=== PATIENT | male | born 1945 | race Caucasian/White ===

== ENCOUNTER 2022-01-24 17:25 | Inpatient (IN) ==
--- NOTE | 2022-01-24 18:18 | DR.URIAD ---
HPI Time Seen Time Seen by Provider: 01/24/22 18:18 PCP Primary Care Physician: None - out of state HPI Comment HPI Comment: PATIENT IS 76YR OLD MALE IN ER WITH FEVER, COUGH AND BLEEDING FROM HEMORRHOID TIMES 2 DAYS. TREATED FOR UTI AND FINISH MED 2 DAYS AGO AND PATIENT SPIKE TEMP YESTERDAY. RECTAL PAIN 7/10 REPORTED. Complaint Chief Complaint Doctors Comments: FEVER, COUGH, BLEEDING FROM HEMORRHOID. Chief Complaint:: Per son, pt has been on abx for UTI, completed them 2 days ago, started running fever 101.5 last night, also has a junky cough, O2 sats got low at home 86-93%, hx of COPD. Pt c/o pain to the chest/abdomen after coughing, pain to the rectum d/t hemorrhoids and also c/o large amount of bleeding from hemorroids. COVID-19 Coronavirus risk:travel/contact w/high risk person: No Has patient experienced Coronavirus symptoms: Yes Coronavirus symptoms experienced: Fever and Coughing Reviewed Nurses Notes Reviewed: Yes Source History Provided: Patient and Family Member Mode of Arrival Mode of Arrival: Wheelchair Timing Onset of Chief Complaint: 01/22/22 Context Recent Treated Infections: None Quality Quality of Cough: Nonproductive Rhinorrhea: None Shortness of Breath: none Associated Signs and Symptoms Other Signs and Symptoms: Cough, Fever, Nasal Symptoms and URI Other History Other History: HTN. COPD PMH PMH Past Medical History: Yes Past Medical History: Anemia, Angina, Anxiety, Asthma, COPD, Coronary Artery Disease, CVA, Dyslipidemia, GERD, Hypertension, Hypothyroidism, Kidney Stones, [place], Renal Disease and Sleep Apnea Past Medical History Comment: hemorrhoids Past Surgical History: Yes Surgical History: CABG/Valve Surgery Family History History of Family Medical Conditions: Yes Family Medical History: Diabetes Mellitus, Cancer, [place], Coronary Artery Disease, Heart Failure and Hypertension Social History Alcohol Use: None Do you use any recreational Drugs:: No Lives With: Family Lives Where: Home Travel Risk Coronavirus risk:travel/contact w/high risk person: No Has patient experienced Coronavirus symptoms: Yes Coronavirus symptoms experienced: Fever and Coughing Infectious screening In the last 2 months have you had wt loss of >10#?: NO Have you had fever, night sweats or hemotysis?: No Have you traveled outside the country in the last 6 months?: No Isolation: Respiratory ROS Review of Systems Constitutional: See HPI, Fever, Weakness and Fatigue Eyes: No Symptoms Reported and See HPI ENTM: No Symptoms Reported, See HPI, Nose Discharge and Nose Congestion Respiratoy: See HPI and Moist Cough; negative Short of Breath and Wheezing Cardiovascular: No Symptoms Reported and See HPI; negative Chest Pain Gastrointestinal/Abdominal: See HPI and Abdominal Pain; negative Diarrhea and Vomiting Genitourinary: See HPI and Bleeding (HEMORRHOID BLLEDING.); negative Dysuria Neurological: No Symptoms Reported, See HPI, Headache and Weakness Musculoskeletal: No Symptoms Reported and See HPI; negative Muscle Pain Integumentary: No Symptoms Reported and See HPI; negative Rash and Juandice Hematologic/Lymphatic: negative Easy Bruising Endocrine: No Symptoms Reported and See HPI; negative Increased Thirst and Increased Urine Psychiatric: No Symptoms Reported and See HPI All Other Systems: Reviewed and Negative PE Vital Signs Vitals: Temperature 99.9 F Pulse Rate [Right Brachial] 91 Pulse Rate 102 Respiratory Rate 18 Blood Pressure [Right Arm] 120/60 Blood Pressure 109/61 O2 Sat by Pulse Oximetry 95 General Limitations: No Limitations General Appearance: Alert and In No Apparent Distress Head Head Exam: Normal Inspection Eyes Eye exam: Normal Appearance; negative Scleral Icterus and Conjunctival Injection ENT ENT Exam: Normal Exam; negative Normal Oropharynx External Ear Exam: Normal External Inspection; negative Mastoid Tenderness TM/Canal Exam: Bilateral: Normal Nose Exam: Normal Nose Exam Mouth Exam: Normal Inspection; negative Lip Swelling and Tongue Swelling Throat Exam: Normal Inspection Neck Neck Exam: Normal Inspection and Trachea Midline; negative Tenderness Chest Chest Inspection: Normal Inspection and Symmetric Chest Wall Rise; negative Tenderness Respiratory Respiratory Exam: Normal Lung Sounds Bilat; negative Accessory Muscle Use, Chest Wall Tenderness and Respiratory Distress Respiratory Exam: Bilateral: Rhonchi Cardiovascular Cardiovascular Exam: Regular Rate, Normal Rhythm and Normal Heart Sounds; negative Systolic Murmur and Diastolic Murmur Abdominal Exam Abdominal Exam: Normal Inspection, Normal Bowel Sounds, Soft and Other (RECTAL HEMORRHOID/BLEEDING.); negative Tenderness Extremeties Extremities Exam: Normal Inspection and Normal Capillary Refill Back Back Exam: Normal Inspection; negative (R) CVA Tenderness and (L) CVA Tenderness Neurologic Neurological Exam: Alert and Oriented X3; negative Motor Sensory Deficit Psychiatric Psychiatric Exam: Normal Affect and Normal Mood Skin Skin Exam: Warm, Dry, Intact and Normal Color MDM Additional Information Additional Information Obtained From: Old Records and Family Differential Diagnosis Differential Diagnosis: Pneumonia (UTI, BRONCHITIS, HEMORRHOID/BLEEDING, WEAKNESS, FEVER.), Sinsusitis and URI COURSE Treatment Treatment: SEE ORDERS DONE WHILE PATIENT WAS IN ER. PATIENT WAS ALSO GIVEN ROCEPHIN 1GM IVPB, NS 1L AT 100CC/HR AND NRORCO 7.5MG PO WHILE IN ER. LABS, EKG AND XRAY REPORT WAS DISCUSSED WITH PATIENT AND FAMILY. Consultation Consultation Comments: DISCUSSED PATIENT WITH DR. RIGGINS. HE WILL ADMIT PATIENT. Education/Counseling Education/Counseling: Patient and Family Educated On: Diagnosis ROR Labs Reviewed Laboratory Results Reviewed?: Yes Result Diagrams: 01/31/22 05:35 01/31/22 05:35 Laboratory: 01/24/22 19:35 Blood Blood Culture - Final 01/24/22 18:51 Blood Blood Culture - Final 01/24/22 21:58 Urine,Catheterized Urine Culture - Final Enterobacter Cloacae WBC 12.9 X10^3/uL (3.6-10.0) H 01/24/22 18:51 RBC 3.09 X10^6/uL (4.7-6.0) L 01/24/22 18:51 Hgb 8.2 g/dL (13.5-18.0) L 01/24/22 18:51 Hct 25.5 % (42.0-54.0) L 01/24/22 18:51 MCV 82.8 fL (80.0-100.0) 01/24/22 18:51 MCH 26.5 pg (27.0-34.0) L 01/24/22 18:51 MCHC 32.0 g/dL (33.0-35.0) L 01/24/22 18:51 RDW 18.2 % (11.6-16.5) H 01/24/22 18:51 Plt Count 225 X10^3/uL (150.0-450.0) 01/24/22 18:51 MPV 6.5 fL (7.4-11.0) L 01/24/22 18:51 Neut % (Auto) 78.3 % (42.0-75.0) H 01/24/22 18:51 Lymph % (Auto) 12.8 % (21.0-51.0) L 01/24/22 18:51 [place] % (Auto) 7.9 % (0.0-13.0) 01/24/22 18:51 Eos % (Auto) 0.7 % (0.9-2.9) L 01/24/22 18:51 Baso % (Auto) 0.3 % (0.2-1.0) 01/24/22 18:51 Neut # (Auto) 10.1 x10^3/uL (2.2-4.8) H 01/24/22 18:51 Lymph # (Auto) 1.7 X10^3/uL (1.3-2.9) 01/24/22 18:51 [place] # (Auto) 1.0 x10^3/uL (0.3-0.8) H 01/24/22 18:51 Eos # (Auto) 0.1 x10^3/uL (0.0-0.2) 01/24/22 18:51 Baso # (Auto) 0.0 X10^3/uL (0.0-0.1) 01/24/22 18:51 Absolute Nucleated RBC 0.0 /100WBC 01/24/22 18:51 Sodium 134 mmol/L (136-145) L 01/24/22 18:51 Corrected Sodium TNP 01/24/22 18:51 Potassium 3.5 mmol/L (3.5-5.1) 01/24/22 18:51 Chloride 99 mmol/L (98-107) 01/24/22 18:51 Carbon Dioxide 27.2 mmol/L (21-32) 01/24/22 18:51 BUN 16 mg/dL (7-18) 01/24/22 18:51 Creatinine 1.43 mg/dL (0.70-1.30) H 01/24/22 18:51 Est GFR (MDRD) Af Amer > 60 (>60) 01/24/22 18:51 Est GFR (MDRD) Non-Af 51 (>60) L 01/24/22 18:51 Glucose 105 mg/dL (65-99) H 01/24/22 18:51 Lactic Acid 1.8 mmol/L (0.4-2.0) 01/24/22 18:51 Calcium 7.9 mg/dL (8.5-10.1) L 01/24/22 18:51 Corrected Calcium 9.0 mg/dL (8.5-10.1) 01/24/22 18:51 Total Bilirubin 0.50 mg/dL (0.2-1.0) 01/24/22 18:51 AST 21 Units/L (15-37) 01/24/22 18:51 ALT 22 Units/L (12-78) 01/24/22 18:51 Alkaline Phosphatase 65 Units/L (46-116) 01/24/22 18:51 Creatine Kinase 125 Units/L (39-308) 01/24/22 18:51 CK-MB (CK-2) < 1.0 ng/mL (0-4.0) 01/24/22 18:51 CK/CKMB % Calc 0.8 % (<4) 01/24/22 18:51 Troponin I High Sens 17.9 ng/L (4.0-60.0) 01/24/22 18:51 Total Protein 6.6 g/dL (6.4-8.2) 01/24/22 18:51 Albumin 2.6 g/dL (3.4-5.0) L 01/24/22 18:51 Globulin 4.0 g/dL (2.5-4.5) 01/24/22 18:51 Albumin/Globulin Ratio 0.7 Ratio (1.1-2.1) L 01/24/22 18:51 Specimen Type Catherized urine 01/24/22 21:58 Urine Color Yellow (YELLOW) 01/24/22 21:58 Urine Appearance Cloudy (CLEAR) 01/24/22 21:58 Urine pH 5.0 (5.0 - 8.0) 01/24/22 21:58 Ur Specific [place] 1.020 (1.000-1.030) 01/24/22 21:58 Urine Protein 2+ (NEGATIVE) 01/24/22 21:58 Urine Glucose (UA) 2+ (NEGATIVE) 01/24/22 21:58 Urine Ketones 1+ (NEGATIVE) 01/24/22 21:58 Urine Blood 3+ (NEGATIVE) 01/24/22 21:58 Urine Nitrite Positive (NEGATIVE) 01/24/22 21:58 Urine Bilirubin Negative (NEGATIVE) 01/24/22 21:58 Urine Urobilinogen Normal (NORMAL) 01/24/22 21:58 Ur Leukocyte Esterase 3+ (NEGATIVE) 01/24/22 21:58 Urine RBC Tntc /HPF (0-3) A 01/24/22 21:58 Urine WBC Tntc /HPF (0-5) A 01/24/22 21:58 Ur Squamous Epith Cells Rare /HPF (NEGATIVE) 01/24/22 21:58 Urine Bacteria 1+ /HPF (NEGATIVE) 01/24/22 21:58 Urine Yeast Numerous /HPF (NEGATIVE) 01/24/22 21:58 Ur Culture Indicated? Yes/culture set up 01/24/22 21:58 SARS CoV-2 RNA Rapid LANCE Negative (NEGATIVE) 01/25/22 00:11 Miscellaneous Test See scanned report 01/24/22 21:58 XRAY XRAY Interpreted by: Radiologist (report noted.) and Self EKG Rate: 82 [place]: Normal Rhythm: Afib Block: None Hypertrophy: None ST: Nonsp Opioid Opioid Risk Tool Age (Francis box if 16-45): No History of Preadolescent Sexual Abuse: No Total: 0 Total Score Risk Category: Low Risk Copyright: Dewayne SMITH predicting aberrant behaviors Diagnosis Discharge Problem: Hemorrhoids with complication Pneumonia Qualifiers: Pneumonia type: due to unspecified organism Laterality: unspecified laterality Lung location: unspecified part of lung Qualified Code(s): J18.9 - Pneumonia, unspecified organism UTI (urinary tract infection) Qualifiers: Urinary tract infection type: acute cystitis Hematuria presence: with hematuria Qualified Code(s): N30.01 - Acute cystitis with hematuria Instructions Instructions: Anemia Preventing Iron Deficiency Anemia, Adult Urinary Tract Infection, Adult, [id number] Hemorrhoids, [id number] Iron Deficiency Anemia, Adult, [id number] Forms: Excuse From Work or School Precautions for COVID19 [facility] Social Distancing
[2022-01-24 19:12] LABS: BASOPHILS % (AUTO) 0.3 % (0.2-1.0); EOSINOPHILS # (AUTO) 0.1 x10^3/uL (0.0-0.2); EOSINOPHILS % (AUTO) 0.7 % (0.9-2.9); HEMATOCRIT 25.5 % (42.0-54.0); HEMOGLOBIN 8.2 g/dL (13.5-18.0); LYMPHOCYTES # (AUTO) 1.7 X10^3/uL (1.3-2.9); LYMPHOCYTES % (AUTO) 12.8 % (21.0-51.0); MEAN CORPUSCULAR HEMOGLOBIN 26.5 pg (27.0-34.0); MEAN CORPUSCULAR VOLUME 82.8 fL (80.0-100.0); MEAN PLATELET VOLUME 6.5 fL (7.4-11.0); MONOCYTES % (AUTO) 7.9 % (0.0-13.0); NEUTROPHILS # (AUTO) 10.1 x10^3/uL (2.2-4.8); NEUTROPHILS % (AUTO) 78.3 % (42.0-75.0); RED BLOOD COUNT 3.09 X10^6/uL (4.7-6.0); RED CELL DISTRIBUTION WIDTH 18.2 % (11.6-16.5); WHITE BLOOD COUNT 12.9 X10^3/uL (3.6-10.0)
[2022-01-24 19:31] LABS: LACTIC ACID 1.8 mmol/L (0.4-2.0)
[2022-01-24 19:32] LABS: ALANINE AMINOTRANSFERASE 22 Units/L (12-78); ALBUMIN 2.6 g/dL (3.4-5.0); ALKALINE PHOSPHATASE 65 Units/L (46-116); ASPARTATE AMINO TRANSFERASE 21 Units/L (15-37); BLOOD UREA NITROGEN 16 mg/dL (7-18); CALCIUM 7.9 mg/dL (8.5-10.1); CARBON DIOXIDE 27.2 mmol/L (21-32); CHLORIDE 99 mmol/L (98-107); CKMB % 0.8 % (<4); CREATINE KINASE 125 Units/L (39-308); CREATINE KINASE MB < 1.0 ng/mL (0-4.0); CREATININE 1.43 mg/dL (0.70-1.30); SODIUM 134 mmol/L (136-145); TOTAL PROTEIN 6.6 g/dL (6.4-8.2); eGFR NON BLACK RACES 51 (>60)
--- NOTE | 2022-01-24 20:33 | RAD ---
HISTORYpt has been on abx for UTI, completed them 2 days ago, started running fever 101.5 last night, also has a junky cough, O2 sats got low at home 86-93% Relevant Clinical InformationSTUDYCHEST, 1 VIEWCOMPARISONFINDINGSThe trachea is midline. The cardiac silhouette is mildly enlarged. Pacemaker in dual leads are present. Aorta is tortuous. Pulmonary blood flow is congested. There is some patchy opacity in the right base of uncertain etiology. There is some chronic coarsening of interstitial markings. There is no pleural effusion. The bony thorax is unremarkable.IMPRESSION1. Nonspecific right base opacity which could be infection or scarring. 2. Left base opacity more typical for atelectasis.Electronically signed by: Iftikhar Junior (Jan 24, 2022 20:33:03)
[2022-01-24] MEDS ORDERED: ROCEPHIN VIAL 1 GRAM 1 G in NS 100 ML IV 100 ML IV ONE (21:11)
[2022-01-24] MEDS ORDERED: ROCEPHIN VIAL 1 GRAM IM ONE (21:41)
[2022-01-24] MEDS ORDERED: ROCEPHIN VIAL 1 GRAM ONE (21:43)
[2022-01-24] MEDS ORDERED: XYLOCAINE 1 % (PLAIN) ONE (21:44)
[2022-01-24 22:07] LABS: BILIRUBIN,URINE NEGATIVE (NEGATIVE); BLOOD/HEMOGLOBIN,URINE 3+ (NEGATIVE); GLUCOSE, URINE 2+ (NEGATIVE); KETONES,URINE 1+ (NEGATIVE); LEUKOCYTE ESTERASE ,URINE 3+ (NEGATIVE); NITRITES,URINE POSITIVE (NEGATIVE); PROTEIN,URINE 2+ (NEGATIVE); UROBILINOGEN,URINE NORMAL (NORMAL)
[2022-01-24 22:17] LABS: APPEARANCE,URINE CLOUDY (CLEAR); BACTERIA,URINE 1+ /HPF (NEGATIVE); COLOR,URINE YELLOW (YELLOW); RBC,URINE TNTC /HPF (0-3); SQUAMOUS EPITHELIAL CELL,UR RARE /HPF (NEGATIVE)
[2022-01-24 22:18] LABS: YEAST,URINE NUMEROUS /HPF (NEGATIVE)
[2022-01-24] MEDS ORDERED: NORCO 7.5/325 MG TAB ONE (23:48)
[2022-01-24] MEDS: NORCO 7.5/325 MG TAB PO PRN (23:50)
[2022-01-25] MEDS ORDERED: NS 100 ML IV 100 ML ONE (01:07)
[2022-01-25] MEDS ORDERED: NS 1,000 ML IV 1,000 ML ONE (01:07)
[2022-01-25] MEDS ORDERED: ZOSYN VIAL 3.375 GRAMS IV ONE (01:07)
[2022-01-25] MEDS: NS 1,000 ML IV 1,000 ML IV SCH ×2 (01:20→13:14)
[2022-01-25] MEDS: ZOSYN VIAL 3.375 GRAMS 3.375 G in NS 100 ML IV 100 ML IV SCH ×4 (01:20→21:54)
[2022-01-25] MEDS ORDERED: PROVENTIL NEB TX 0.083% 2.5MG/ 3ML ONE (01:51)
[2022-01-25] MEDS: PROVENTIL NEB TX 0.083% 2.5MG/ 3ML NEB SCH ×5 (02:00→21:03)
[2022-01-25 03:14] VITALS: BMI 33.3
[2022-01-25 06:17] LABS: BASOPHILS % (AUTO) 0.2 % (0.2-1.0); HEMATOCRIT 24.3 % (42.0-54.0); HEMOGLOBIN 7.8 g/dL (13.5-18.0); LYMPHOCYTES # (AUTO) 1.4 X10^3/uL (1.3-2.9); LYMPHOCYTES % (AUTO) 12.6 % (21.0-51.0); MEAN CORPUSCULAR HEMOGLOBIN 26.6 pg (27.0-34.0); MEAN CORPUSCULAR HGB CONC 32.3 g/dL (33.0-35.0); MEAN CORPUSCULAR VOLUME 82.4 fL (80.0-100.0); MEAN PLATELET VOLUME 6.9 fL (7.4-11.0); MONOCYTES # (AUTO) 1.2 x10^3/uL (0.3-0.8); MONOCYTES % (AUTO) 10.7 % (0.0-13.0); NEUTROPHILS # (AUTO) 8.7 x10^3/uL (2.2-4.8); NEUTROPHILS % (AUTO) 76.5 % (42.0-75.0); RED BLOOD COUNT 2.95 X10^6/uL (4.7-6.0); RED CELL DISTRIBUTION WIDTH 18.1 % (11.6-16.5); WHITE BLOOD COUNT 11.4 X10^3/uL (3.6-10.0)
[2022-01-25 06:35] LABS: ALANINE AMINOTRANSFERASE 18 Units/L (12-78); ALBUMIN 2.3 g/dL (3.4-5.0); ALKALINE PHOSPHATASE 60 Units/L (46-116); ASPARTATE AMINO TRANSFERASE 19 Units/L (15-37); BLOOD UREA NITROGEN 16 mg/dL (7-18); CALCIUM 7.5 mg/dL (8.5-10.1); CARBON DIOXIDE 27.5 mmol/L (21-32); CHLORIDE 100 mmol/L (98-107); CKMB % 0.6 % (<4); COR CA(FOR HYPOALB) 8.9 mg/dL (8.5-10.1); COR NA(FOR HYPERGLY) 135 mmol/L (136-145); CREATINE KINASE 172 Units/L (39-308); CREATINE KINASE MB < 1.0 ng/mL (0-4.0); CREATININE 1.35 mg/dL (0.70-1.30); MAGNESIUM 1.8 mg/dL (1.7-2.9); SODIUM 134 mmol/L (136-145); eGFR NON BLACK RACES 54 (>60)
[2022-01-25] MEDS ORDERED: POTASSIUM CHLORIDE LIQ 20 MEQ UDC PO PRN (10:47)
[2022-01-25] MEDS ORDERED: K-RIDER 10 MEQ/NS 100 ML 10 MEQ/100 ML BAG IV PRN (10:47)
[2022-01-25] MEDS ORDERED: POTASSIUM CHL 40 MEQ/NS 0.45% 500 ML IV PRN (10:47)
[2022-01-25] MEDS ORDERED: KLOR-CON PO PRN (10:47)
[2022-01-25] MEDS ORDERED: MICRO K EXTEN CAP 10 MEQ PO PRN (10:47)
[2022-01-25] MEDS ORDERED: POTASSIUM CHL 60 MEQ/NS 0.45% 500 ML IV PRN (10:47)
--- NOTE | 2022-01-25 12:30 | DR.H&P ---
H&P - History & Physical for Day of: H&P Date: 01/24/22 - Chief Complaint Chief Complaint: FEVER, COUGH, SOB, RECTAL BLEEDING - History of Present Illness History of Present Illness: IS A 76 YEAR OLD WHITE MALE. HE LIVES OUT OF TOWN, BUT IS HERE VISITING WITH FAMILY. HE PRESENTED WITH COMPLAINTS OF FEVER, COUGH, AND RECTAL BLEEDING. PER SON, PATIENT WAS RECENTLY TREATED FOR A UTI WITH MACROBID. HE FINISHED TAKING ANTIBIOTICS ON 01/22. HE BEGAN RUNNING FEVER ONE DAY PRIOR TO ARRIVAL. SON REPORTS THAT PATIENT ALSO HAS A PRODUCTIVE COUGH AND SHORTNESS OF BREATH. HIS OXYGEN SATURATIONS WERE APPARENTLY 86-93% AT HOME ON ROOM AIR. PATIENT DOES HAVE A HISOTRY OF COPD. PATIENT REPORTS PAIN TO THE CHEST/ABDOMEN AREA AFTER COUGHING. HE ALSO COMPLAINS OF PAIN TO THE RECTUM AND BLEEDING D/T HEMORRHOIDS. SPUTUM IS THICK AND YELLOW IN COLOR. PMH INCLUDES: ANEMIA, ANXIETY, ASTHMA, COPD, CAD, CVA, DYSLIPIDEMIA, GERD, HTN, HYPOTHYROIDISM CT, RENAL DISEASE, SLEEP APNEA, HEMORRHOIDS, AND CABG. AUSCULTATION OF LUNG BROWN DID REVEAL RHONCHI AND EXPIRATORY WHEEZING. ON ARRIVAL, VITALS WERE: 99.9-102-22-94%-109/61. LABS WERE OBTAINED. WBC 12.9, RBC 3.09, HGB 8.2, HCT 25.5, INR 2.79, HGB 50.7, SODIUM 134, POTASSIUM 3.5, CHLORIDE 99, BUN 16, CREATININE 1.43, GLUCOSE 105, LACTIC ACID 1.8, CALCIUM 7.9, AST 21, ALT 22, ALK PHOS 65, CREATINE KINASE 125, TOTAL PROTEIN 6.6, ALBUMIN 2.6. URINALYSIS WAS OBTAINED AND REVEALED: WBC TNTC, RBC TNTC, LEUKOCYTES 3+, BACTERIA 1+, YEAST NUMEROUS, BLOOD 3+. COVID-19 NEGATIVE. BLOOD, SPUTUM, AND URINE CULTURES WERE SET UP. CHEST XRAY WAS OBTAINED AND REVEALED: 1. Nonspecific right base opacity which could be infection or scarring. 2. Left base opacity more typical for atelectasis. IN THE ER, HE WAS GIVEN ROCEPHIN 1G IV X 1 DOSE. A PATEL CATHETER WAS INSERTED TO BEDSIDE DRAINAGE. HE WAS ADMITTED TO THE HOSPTIAL FOR INPATIENT TREATMENT OF PNEUMONIA, UTI, ANEMIA, HEMORRHOIDS, RECTAL BLEEDING. HE WAS STARTED ON NORMAL SALINE AT 50 ML/HR, ZOSYN 3.375G IV TID, LEVAQUIN 500MG IV DAILY, DIFLUCAN 200MG IV DAILY, PEPCID 20MG IV Q12H, PROTONIX 40MG IV BID, GI COCKTAIL 15ML PO QID, PROVENTIL NEBS QID, PULMICORT NEBS BID, NORCO 7.5/325MG PO Q6H PRN, AND THE POTASSIUM AND MAGNESIUM PROTOCOLS. WE WILL HAVE PHYSICAL THERAPY EVALUATE AND WORK WITH PATIENT TODAY. OTHERWISE, WE PLAN TO FOLLOW-UP WITH AM LABS AND CONTINUE TO MONITOR. TIME SPENT ON CLINICAL ASSESSMENT, REVIEWING LABS AND IMAGING, DECISION MAKING, AND DOCUMENTATION GREATER THAN 75 MINUTES. - Past Medical History Past Medical History: Angina, CT, Coronary Artery Disease, Hypertension, Dyslipidemia, Renal Disease, Anxiety, Hypothyroidism, Anemia, CVA, COPD, Asthma, GERD, Kidney Stones, Sleep Apnea - Past Surgical History Surgical History: CABG/Valve Surgery - Family History Family Medical History: Diabetes Mellitus, Cancer, CT, Coronary Artery Disease, Heart Failure, Hypertension - Social History Does patient currently use any type of tobacco product: No Have you used tobacco products in the last 12 months: No Type of Tobacco Use: Cigarettes How many years tobacco product used: 20 Does any household member use tobacco: No Alcohol Use: None Drug Use: Prescription Drugs - Medications Home Medications: No Known Drug Allergies Allergy (Verified 01/24/22 17:26) CONTINUE taking the following medications hydrocodone-acetaminophen 1 tab PO Q6H 01/25/22 [History] - Review of Systems Constitutional: Fever, Weakness Eyes: No Symptoms Reported ENT: No Symptoms Reported Respiratory: See HPI, Cough, Shortness of Breath Cardiovascular: No Symptoms Reported Gastrointestinal: No Symptoms Reported Genitourinary: See HPI, Dysuria Musculoskeletal: No Symptoms Reported Skin: No Symptoms Reported Neurological: Weakness - Physical Exam Vital Signs: Temperature 99.3 F Pulse Rate [Right Brachial] 92 Pulse Rate 89 Respiratory Rate 20 Blood Pressure [Right Arm] 133/62 Blood Pressure 109/61 O2 Sat by Pulse Oximetry 99 Oriented: Normal Eyes: Normal Ear: Normal Nose: Normal Throat: Normal Respiratory: Rhonchi Throughout, Wheezes Throughout Cardiovascular: Normal : Normal Auscultation: Bowel Sounds: Normal Palpation: Normal Tenderness: Suprapubic Skin: Normal Musculoskeletal: Normal Psychiatric: Normal Mood Description: Calm Affect: Normal Speech Pattern: Clear - Assessment/Plan (1) Pneumonia Qualifiers: Pneumonia type: due to unspecified organism Laterality: unspecified laterality Lung location: unspecified part of lung Qualified Code(s): J18.9 - Pneumonia, unspecified organism Status: Acute Plan: ADMIT, NORMAL SALINE AT 50 ML/HR, ZOSYN 3.375G IV TID, LEVAQUIN 500MG IV DAILY, PEPCID 20MG IV Q12H, PROTONIX 40MG IV BID, GI COCKTAIL 15ML PO QID, PROVENTIL NEBS QID, PULMICORT NEBS BID, NORCO 7.5/325MG PO Q6H PRN, AND THE POTASSIUM AND MAGNESIUM PROTOCOLS. (2) UTI (urinary tract infection) Qualifiers: Urinary tract infection type: acute cystitis Hematuria presence: with hematuria Qualified Code(s): N30.01 - Acute cystitis with hematuria Status: Acute (3) Anemia Qualifiers: Anemia type: iron deficiency Iron deficiency anemia type: unspecified iron deficiency Qualified Code(s): D50.9 - Iron deficiency anemia, unspecified Status: Acute (4) Bleeding external hemorrhoids Status: Acute - Allergies Allergies/Adverse Reactions: Allergies Allergy/AdvReac Type Severity Reaction Status Date / Time No Known Drug Allergies Allergy Verified 01/24/22 17:26
[2022-01-25] MEDS ORDERED: MAGNESIUM SULFATE 1 GRAM/100 mL PREMIX 1 G/100 ML BAG IV ONE (12:33)
[2022-01-25] MEDS ORDERED: NS 250 ML IV 250 ML IV ONE (12:33)
[2022-01-25] MEDS ORDERED: DIFLUCAN 200 MG IV PREMIX* 200 MG/100 ML BAG IV ONE (12:33)
[2022-01-25] MEDS: DIFLUCAN 200 MG IV PREMIX* 200 MG/100 ML BAG IV SCH (13:12)
[2022-01-25] MEDS: PEPCID 20 MG VIAL 20 MG in NS 50 ML IV 50 ML IV SCH ×2 (13:12→21:53)
[2022-01-25] MEDS: LEVAQUIN PREMIX IV 500 MG 500 MG/100 ML BAG IV SCH (13:13)
[2022-01-25] MEDS: LEVSIN/MAALOX/LIDOC VISC PO SCH ×4 (13:13→21:53)
[2022-01-25] MEDS: PROTONIX INJ 40 MG VIAL IVP SCH ×2 (13:13→21:54)
[2022-01-25] MEDS: K-DUR TAB 20 MEQ PO PRN (13:13)
[2022-01-25] MEDS: PULMICORT NEB TX 0.5 MG NEB SCH ×2 (13:52→21:03)
[2022-01-25] MEDS: MAGNESIUM SULFATE 1 GRAM/100 mL PREMIX 1 G/100 ML BAG IV PRN ×2 (15:30→16:30)
[2022-01-25] MEDS: NORCO 7.5/325 MG TAB PO PRN (18:59)
[2022-01-25] MEDS ORDERED: VALIUM PO PRN (23:38)
[2022-01-26] MEDS: NS 1,000 ML IV 1,000 ML IV SCH ×2 (01:09→05:13)
[2022-01-26] MEDS ORDERED: ROBITUSSIN DM PO PRN (02:34)
[2022-01-26] MEDS: ZOSYN VIAL 3.375 GRAMS 3.375 G in NS 100 ML IV 100 ML IV SCH ×3 (05:13→21:00)
--- NOTE | 2022-01-26 05:46 | RAD ---
PROCEDURE: Chest X-ray 1 View .HISTORY: Dyspnea.TECHNIQUE: AP view .COMPARISON: 01/24/2022.TECHNICAL QUALITY: Satisfactory .FINDINGS:Normal size heart with previous sternotomy and pacemaker on the right.Normal central vascularity.No pulmonary consolidation, masses, or pleural fluid.IMPRESSION:1. No active cardiopulmonary disease.Electronically signed by: Harman Disla (Jan 26, 2022 05:47:07)
[2022-01-26 06:35] LABS: BASOPHILS % (AUTO) 0.3 % (0.2-1.0); EOSINOPHILS # (AUTO) 0.1 x10^3/uL (0.0-0.2); EOSINOPHILS % (AUTO) 1.5 % (0.9-2.9); HEMATOCRIT 23.6 % (42.0-54.0); HEMOGLOBIN 7.5 g/dL (13.5-18.0); LYMPHOCYTES % (AUTO) 24.6 % (21.0-51.0); MEAN CORPUSCULAR HEMOGLOBIN 26.3 pg (27.0-34.0); MEAN CORPUSCULAR HGB CONC 31.8 g/dL (33.0-35.0); MEAN CORPUSCULAR VOLUME 82.5 fL (80.0-100.0); MEAN PLATELET VOLUME 6.7 fL (7.4-11.0); MONOCYTES # (AUTO) 0.8 x10^3/uL (0.3-0.8); MONOCYTES % (AUTO) 9.8 % (0.0-13.0); NEUTROPHILS % (AUTO) 63.8 % (42.0-75.0); RED BLOOD COUNT 2.86 X10^6/uL (4.7-6.0); RED CELL DISTRIBUTION WIDTH 18.2 % (11.6-16.5); WHITE BLOOD COUNT 7.9 X10^3/uL (3.6-10.0)
[2022-01-26 07:05] LABS: ALANINE AMINOTRANSFERASE 25 Units/L (12-78); ALBUMIN 2.2 g/dL (3.4-5.0); ALKALINE PHOSPHATASE 65 Units/L (46-116); ASPARTATE AMINO TRANSFERASE 34 Units/L (15-37); BLOOD UREA NITROGEN 12 mg/dL (7-18); CALCIUM 8.2 mg/dL (8.5-10.1); CARBON DIOXIDE 28.9 mmol/L (21-32); CHLORIDE 103 mmol/L (98-107); COR CA(FOR HYPOALB) 9.6 mg/dL (8.5-10.1); COR NA(FOR HYPERGLY) 138 mmol/L (136-145); CREATININE 1.25 mg/dL (0.70-1.30); SODIUM 138 mmol/L (136-145); eGFR NON BLACK RACES 59 (>60)
[2022-01-26] MEDS: DIFLUCAN 200 MG IV PREMIX* 200 MG/100 ML BAG IV SCH (08:24)
[2022-01-26] MEDS: LEVSIN/MAALOX/LIDOC VISC PO SCH ×4 (08:24→20:59)
[2022-01-26] MEDS: PEPCID 20 MG VIAL 20 MG in NS 50 ML IV 50 ML IV SCH ×2 (08:24→21:00)
[2022-01-26] MEDS: NORCO 7.5/325 MG TAB PO PRN (08:24)
[2022-01-26] MEDS: LEVAQUIN PREMIX IV 500 MG 500 MG/100 ML BAG IV SCH (08:24)
[2022-01-26] MEDS: PROTONIX INJ 40 MG VIAL IVP SCH ×2 (08:24→20:58)
[2022-01-26] MEDS: MUCOMYST (RESPIRATORY USE ONLY) NEB SCH ×2 (08:41→20:25)
[2022-01-26] MEDS: PULMICORT NEB TX 0.5 MG NEB SCH ×2 (08:41→20:25)
[2022-01-26] MEDS: PROVENTIL NEB TX 0.083% 2.5MG/ 3ML NEB SCH (08:41)
[2022-01-26] MEDS: DUONEB 0.5 MG/3 MG (3 mL) NEB SCH ×4 (10:04→20:25)
[2022-01-26] MEDS ORDERED: NovoLIN R (or HumuLIN R) SUBCUT PRN (10:10)
[2022-01-26] MEDS ORDERED: ASTELIN NASAL SPRAY ENOSTRIL ONE (10:40)
[2022-01-26] MEDS ORDERED: DRUG FILTER EXTENSION SET ONE (10:44)
[2022-01-26] MEDS ORDERED: CLINIMIX 4.25%-5% 1,000 ML with MVI INJ (ADULT) 10 ML IV SCH ×2 (11:00)
[2022-01-26] MEDS: PATIENT'S HOME MEDICATION (Alfuzosin 10 mg Tablet Extended Release 24 Hr) PO SCH (11:07)
[2022-01-26] MEDS: ASTELIN NASAL SPRAY ENOSTRIL SCH ×2 (11:08→20:58)
[2022-01-26] MEDS: BUMEX TAB 1 MG PO SCH ×2 (11:08→20:58)
[2022-01-26] MEDS: DAPAGLIFLOZIN 10 MG PO SCH (11:08)
[2022-01-26] MEDS: K-DUR TAB 20 MEQ PO SCH (11:09)
[2022-01-26] MEDS: FERROUS GLUCONATE PO SCH (11:09)
[2022-01-26] MEDS: COZAAR PO SCH (11:09)
[2022-01-26] MEDS: SYNTHROID 50 mcg TAB PO SCH (11:10)
[2022-01-26] MEDS: VITAMIN B-12 PO SCH (11:10)
[2022-01-26] MEDS: PROSCAR PO SCH (11:10)
[2022-01-26] MEDS: VITAMIN D3 125 mcg (5,000 UNITS) PO SCH (11:11)
[2022-01-26] MEDS: TESSALON PERLES PO SCH ×3 (11:11→21:00)
[2022-01-26] MEDS: ALBUMIN HUMAN 25%- 100 ML 100 ML IV SCH (11:11)
--- NOTE | 2022-01-26 13:36 | PCM.PROG ---
Progress Note - Progress Note for Day of Date of Exam: 01/26/22 - Subjective Subjective: WAS ADMITTED FOR TREATMENT OF PNEUMONIA, UTI, ANEMIA, AND BLEEDING HEMORRHOIDS. TODAY, HE IS ALERT AND ORIENTED, SITTING UP IN BED ON MORNING ROUNDS. HE CONTINUES WITH COMPLAINTS OF PRODUCTIVE COUGH, SHORTNESS OF BREATH, AND GENERALIZED WEAKNESS. HE ALSO CONTINUES WITH RECTAL PAIN FROM HEMORRHOIDS AT TIMES. ON EXAMINATION, HEART IS REGULAR IN RATE AND RHYTHM. BILATERAL LUNGS NOTED WITH RHONCHI AND WHEEZING THROUGHOUT. COUGH IS PRODUCTIVE OF THICK, YELLOW SPUTUM. ABDOMEN IS ROUND, SOFT, AND NOTED WITH SUPRAPUBIC TENDERNESS. NORMAL BOWEL SOUNDS NOTED IN ALL QUADRANTS. INDWELLING PATEL NOTED TO BEDSIDE DRAINAGE. TRACE LOWER EXTREMITY EDEMA NOTED. HIS VITALS THIS MORNING ARE: 97.8-82-20-97%-146/70. LABS WERE OBTAINED. ABNORMAL LAB VALUES INCLUDE THE FOLLOWING: RBC 2.86, HGB 7.5, HCT 23.6, INR 2.31, SODIUM 138, POTASSIUM 3.3, BUN 12, CREATININE 1.12, GLUCOSE 119, CALCIUM 8.2, TOTAL PROTEIN 6.0, ALBUMIN 2.2. BLOOD AND SPUTUM CULTURES ARE PENDING. URINE CULTURE IS POSITIVE FOR YEAST AND ENTEROBACTER CLOACAE. IT IS SENSITIVE TO THE ANTIBIOTICS THAT HE IS CURRENTLY ON. HE IS CURRENTLY ON NORMAL SALINE AT 50 ML/HR, ZOSYN 3.375G IV TID, LEVAQUIN 500MG IV DAILY, DIFLUCAN 200MG IV DAILY, PEPCID 20MG IV Q12H, PROTONIX 40MG IV BID, GI COCKTAIL 15ML PO QID, PROVENTIL NEBS QID, PULMICORT NEBS BID, NORCO 7.5/325MG PO Q6H PRN, AND THE POTASSIUM AND MAGNESIUM PROTOCOLS. WE WILL DI SCONTINUE THE PROVENTIL NEBS AND ADD DUONEBS QID. WE WILL ALSO ADD ALBUMIN 25% IV DAILY, TPN AT 40 ML/HR, TESSALON PERLES 200MG PO TID. PHYSICAL THERAPY WILL WORK WITH HIM TODAY. OTHERWISE, WE PLAN TO FOLLOW-UP WITH AM LABS AND CONTINUE TO MONITOR. TIME SPENT ON CLINICAL ASSESSMENT, REVIEWING LABS AND IMAGING, DECISION MAKING, AND DOCUMENTATION GREATER THAN 45 MINUTES. - Past Medical Family Social History Past Med/Fam/Surg Hx: No changes since H&P Allergies: Allergies No Known Drug Allergies Allergy (Verified 01/24/22 17:26) - Review of Systems ROS: No change since H&P - Vital Signs and I&O's Vital Signs: Temperature 97.9 F Pulse Rate [Right Brachial] 78 Pulse Rate 147 Respiratory Rate 20 Blood Pressure [Right Arm] 120/59 Blood Pressure 109/61 O2 Sat by Pulse Oximetry 99 Intake and Output: Intake & Output 01/24/22 01/25/22 01/26/22 01/27/22 11:59 11:59 11:59 11:59 Intake Total 450 / 450 2661 / 2661 Output Total 925 / 925 Balance 450 / 450 1736 / 1736 - Physical Exam Oriented: Normal Eyes: Normal Ear: Normal Nose: Normal Throat: Normal Respiratory: Generalized, Wheezes, Rhonchi Cardiovascular: Normal : Normal Auscultation: Bowel Sounds: Normal Palpation: Normal Tenderness: Suprapubic Skin: Normal Musculoskeletal: Normal Psychiatric: Normal Mood Description: Calm Affect: Normal Speech Pattern: Clear, Appropriate - Laboratory and Diagnostics Result Diagrams: 01/26/22 05:37 01/26/22 05:37 Labs: 01/25/22 02:00 Sputum - Expectorated Sputum Sputum Culture - Preliminary 01/25/22 02:00 Sputum - Expectorated Sputum - Final 01/24/22 19:35 Blood Blood Culture - Preliminary 01/24/22 18:51 Blood Blood Culture - Preliminary 01/24/22 21:58 Urine,Catheterized Urine Culture - Final Enterobacter Cloacae Laboratory WBC 7.9 X10^3/uL (3.6-10.0) 01/26/22 05:37 RBC 2.86 X10^6/uL (4.7-6.0) L 01/26/22 05:37 Hgb 7.5 g/dL (13.5-18.0) L 01/26/22 05:37 Hct 23.6 % (42.0-54.0) L 01/26/22 05:37 MCV 82.5 fL (80.0-100.0) 01/26/22 05:37 MCH 26.3 pg (27.0-34.0) L 01/26/22 05:37 MCHC 31.8 g/dL (33.0-35.0) L 01/26/22 05:37 RDW 18.2 % (11.6-16.5) H 01/26/22 05:37 Plt Count 192 X10^3/uL (150.0-450.0) 01/26/22 05:37 MPV 6.7 fL (7.4-11.0) L 01/26/22 05:37 Neut % (Auto) 63.8 % (42.0-75.0) 01/26/22 05:37 Lymph % (Auto) 24.6 % (21.0-51.0) 01/26/22 05:37 [place] % (Auto) 9.8 % (0.0-13.0) 01/26/22 05:37 Eos % (Auto) 1.5 % (0.9-2.9) 01/26/22 05:37 Baso % (Auto) 0.3 % (0.2-1.0) 01/26/22 05:37 Neut # (Auto) 5.0 x10^3/uL (2.2-4.8) H 01/26/22 05:37 Lymph # (Auto) 2.0 X10^3/uL (1.3-2.9) 01/26/22 05:37 [place] # (Auto) 0.8 x10^3/uL (0.3-0.8) 01/26/22 05:37 Eos # (Auto) 0.1 x10^3/uL (0.0-0.2) 01/26/22 05:37 Baso # (Auto) 0.0 X10^3/uL (0.0-0.1) 01/26/22 05:37 Absolute Nucleated RBC 0.0 /100WBC 01/26/22 05:37 PT 24.3 SECONDS (11.8-14.3) 01/26/22 05:37 INR Target Range - 01/26/22 05:37 INR 2.31 (0.8-1.3) H 01/26/22 05:37 APTT 50.7 SECONDS (22.9-36.5) H 01/25/22 05:40 PTT Comment - 01/25/22 05:40 Sodium 138 mmol/L (136-145) 01/26/22 05:37 Corrected Sodium 138 mmol/L (136-145) 01/26/22 05:37 Potassium 3.3 mmol/L (3.5-5.1) L 01/26/22 05:37 Chloride 103 mmol/L (98-107) 01/26/22 05:37 Carbon Dioxide 28.9 mmol/L (21-32) 01/26/22 05:37 BUN 12 mg/dL (7-18) 01/26/22 05:37 Creatinine 1.25 mg/dL (0.70-1.30) 01/26/22 05:37 Est GFR (MDRD) Af Amer > 60 (>60) 01/26/22 05:37 Est GFR (MDRD) Non-Af 59 (>60) 01/26/22 05:37 Glucose 119 mg/dL (65-99) H 01/26/22 05:37 Lactic Acid 1.8 mmol/L (0.4-2.0) 01/24/22 18:51 Calcium 8.2 mg/dL (8.5-10.1) L 01/26/22 05:37 Corrected Calcium 9.6 mg/dL (8.5-10.1) 01/26/22 05:37 Magnesium 1.8 mg/dL (1.7-2.9) 01/25/22 05:40 Total Bilirubin 0.20 mg/dL (0.2-1.0) 01/26/22 05:37 AST 34 Units/L (15-37) 01/26/22 05:37 ALT 25 Units/L (12-78) 01/26/22 05:37 Alkaline Phosphatase 65 Units/L (46-116) 01/26/22 05:37 Creatine Kinase 172 Units/L (39-308) 01/25/22 05:40 CK-MB (CK-2) < 1.0 ng/mL (0-4.0) 01/25/22 05:40 CK/CKMB % Calc 0.6 % (<4) 01/25/22 05:40 Troponin I High Sens 31.1 ng/L (4.0-60.0) 01/25/22 05:40 Total Protein 6.0 g/dL (6.4-8.2) L 01/26/22 05:37 Albumin 2.2 g/dL (3.4-5.0) L 01/26/22 05:37 Globulin 3.8 g/dL (2.5-4.5) 01/26/22 05:37 Albumin/Globulin Ratio 0.6 Ratio (1.1-2.1) L 01/26/22 05:37 Specimen Type Catherized urine 01/24/22 21:58 Urine Color Yellow (YELLOW) 01/24/22 21:58 Urine Appearance Cloudy (CLEAR) 01/24/22 21:58 Urine pH 5.0 (5.0 - 8.0) 01/24/22 21:58 Ur Specific [place] 1.020 (1.000-1.030) 01/24/22 21:58 Urine Protein 2+ (NEGATIVE) 01/24/22 21:58 Urine Glucose (UA) 2+ (NEGATIVE) 01/24/22 21:58 Urine Ketones 1+ (NEGATIVE) 01/24/22 21:58 Urine Blood 3+ (NEGATIVE) 01/24/22 21:58 Urine Nitrite Positive (NEGATIVE) 01/24/22 21:58 Urine Bilirubin Negative (NEGATIVE) 01/24/22 21:58 Urine Urobilinogen Normal (NORMAL) 01/24/22 21:58 Ur Leukocyte Esterase 3+ (NEGATIVE) 01/24/22 21:58 Urine RBC Tntc /HPF (0-3) A 01/24/22 21:58 Urine WBC Tntc /HPF (0-5) A 01/24/22 21:58 Ur Squamous Epith Cells Rare /HPF (NEGATIVE) 01/24/22 21:58 Urine Bacteria 1+ /HPF (NEGATIVE) 01/24/22 21:58 Urine Yeast Numerous /HPF (NEGATIVE) 01/24/22 21:58 Ur Culture Indicated? Yes/culture set up 01/24/22 21:58 SARS CoV-2 RNA Rapid LANCE Negative (NEGATIVE) 01/25/22 00:11 - Plan (1) Pneumonia Status: Acute Qualifiers: Pneumonia type: due to unspecified organism Laterality: unspecified laterality Lung location: unspecified part of lung Qualified Code(s): J18.9 - Pneumonia, unspecified organism Plan: NORMAL SALINE AT 50 ML/HR, TPN AT 40 ML/HR, ALBUMIN 25% IV DAILY, TESSALON PERLES 200MG PO TID, ZOSYN 3.375G IV TID, LEVAQUIN 500MG IV DAILY, PEPCID 20MG I V Q12H, PROTONIX 40MG IV BID, GI COCKTAIL 15ML PO QID, DUONEBS QID, PULMICORT NEBS BID, NORCO 7.5/325MG PO Q6H PRN, AND THE POTASSIUM AND MAGNESIUM PROTOCOLS. (2) UTI (urinary tract infection) Status: Acute Qualifiers: Urinary tract infection type: acute cystitis Hematuria presence: with hematuria Qualified Code(s): N30.01 - Acute cystitis with hematuria (3) Anemia Status: Acute Qualifiers: Anemia type: iron deficiency Iron deficiency anemia type: unspecified iron deficiency Qualified Code(s): D50.9 - Iron deficiency anemia, unspecified (4) Hypoalbuminemia due to protein-calorie malnutrition Status: Acute (5) Bleeding external hemorrhoids Status: Acute
[2022-01-26] MEDS: SNACK - Diabetic Appropriate PO SCH (20:58)
[2022-01-26] MEDS: COUMADIN TAB 5 MG (JANTOVEN) PO SCH (20:59)
[2022-01-26] MEDS: ZOLOFT PO SCH (21:00)
[2022-01-26] MEDS: SINGULAIR TAB 10 MG PO SCH (21:00)
[2022-01-26] MEDS: ZyrTEC TAB 10 MG PO SCH (21:00)
[2022-01-26] MEDS: LIPITOR TAB 40 MG PO SCH (21:00)
[2022-01-26] MEDS: LOVAZA PO SCH (21:01)
[2022-01-26] MEDS: MYSOLINE PO SCH (21:01)
[2022-01-27] MEDS: TESSALON PERLES PO SCH ×3 (05:09→21:06)
[2022-01-27] MEDS: ZOSYN VIAL 3.375 GRAMS 3.375 G in NS 100 ML IV 100 ML IV SCH ×3 (05:09→21:06)
[2022-01-27] MEDS: NS 1,000 ML IV 1,000 ML IV SCH ×3 (05:09→21:06)
[2022-01-27 05:14] LABS: BASOPHILS % (AUTO) 0.3 % (0.2-1.0); EOSINOPHILS # (AUTO) 0.2 x10^3/uL (0.0-0.2); EOSINOPHILS % (AUTO) 3.1 % (0.9-2.9); HEMATOCRIT 23.8 % (42.0-54.0); HEMOGLOBIN 7.7 g/dL (13.5-18.0); LYMPHOCYTES # (AUTO) 1.6 X10^3/uL (1.3-2.9); LYMPHOCYTES % (AUTO) 25.5 % (21.0-51.0); MEAN CORPUSCULAR HEMOGLOBIN 26.8 pg (27.0-34.0); MEAN CORPUSCULAR HGB CONC 32.1 g/dL (33.0-35.0); MEAN CORPUSCULAR VOLUME 83.5 fL (80.0-100.0); MEAN PLATELET VOLUME 6.7 fL (7.4-11.0); MONOCYTES # (AUTO) 0.5 x10^3/uL (0.3-0.8); MONOCYTES % (AUTO) 8.3 % (0.0-13.0); NEUTROPHILS % (AUTO) 62.8 % (42.0-75.0); RED BLOOD COUNT 2.85 X10^6/uL (4.7-6.0); RED CELL DISTRIBUTION WIDTH 18.5 % (11.6-16.5); WHITE BLOOD COUNT 6.3 X10^3/uL (3.6-10.0)
[2022-01-27 05:20] LABS: ALANINE AMINOTRANSFERASE 35 Units/L (12-78); ALBUMIN 2.3 g/dL (3.4-5.0); ALKALINE PHOSPHATASE 55 Units/L (46-116); ASPARTATE AMINO TRANSFERASE 39 Units/L (15-37); BLOOD UREA NITROGEN 8 mg/dL (7-18); CALCIUM 7.9 mg/dL (8.5-10.1); CARBON DIOXIDE 29.4 mmol/L (21-32); CHLORIDE 104 mmol/L (98-107); COR CA(FOR HYPOALB) 9.3 mg/dL (8.5-10.1); CREATININE 1.24 mg/dL (0.70-1.30); SODIUM 141 mmol/L (136-145); TOTAL PROTEIN 6.1 g/dL (6.4-8.2); eGFR NON BLACK RACES 60 (>60)
--- NOTE | 2022-01-27 05:57 | RAD ---
PROCEDURE: Chest X-ray 1 View .HISTORY: Dyspnea.TECHNIQUE: AP view .COMPARISON: 01/26/2022.TECHNICAL QUALITY: Satisfactory .FINDINGS:Normal size heart with pacemaker on the right.Mediastinum and hilar regions show no masses or lymphadenopathy .Normal central vascularity .No pulmonary consolidation, masses, pleural fluid, or pneumothorax .No acute bony abnormality .IMPRESSION:No active cardiopulmonary disease .Electronically signed by: Harman Disla (Jan 27, 2022 05:56:55)
[2022-01-27] MEDS: LEVAQUIN PREMIX IV 500 MG 500 MG/100 ML BAG IV SCH ×2 (07:52→18:57)
[2022-01-27] MEDS: DUONEB 0.5 MG/3 MG (3 mL) NEB SCH ×4 (08:28→20:10)
[2022-01-27] MEDS: MUCOMYST (RESPIRATORY USE ONLY) NEB SCH ×2 (08:28→20:10)
[2022-01-27] MEDS: PULMICORT NEB TX 0.5 MG NEB SCH ×2 (08:28→20:10)
[2022-01-27] MEDS: COZAAR PO SCH (09:42)
[2022-01-27] MEDS: K-DUR TAB 20 MEQ PO SCH (09:44)
[2022-01-27] MEDS: PROSCAR PO SCH (09:44)
[2022-01-27] MEDS: VITAMIN B-12 PO SCH (09:44)
[2022-01-27] MEDS: BUMEX TAB 1 MG PO SCH ×2 (09:44→21:03)
[2022-01-27] MEDS: VITAMIN D3 125 mcg (5,000 UNITS) PO SCH (09:45)
[2022-01-27] MEDS: LEVSIN/MAALOX/LIDOC VISC PO SCH ×4 (09:45→21:04)
[2022-01-27] MEDS: SYNTHROID 50 mcg TAB PO SCH (09:45)
[2022-01-27] MEDS: PROTONIX INJ 40 MG VIAL IVP SCH ×2 (10:00→21:05)
[2022-01-27] MEDS: ASTELIN NASAL SPRAY ENOSTRIL SCH ×2 (10:00→21:03)
[2022-01-27] MEDS: FERROUS GLUCONATE PO SCH (10:00)
--- NOTE | 2022-01-27 10:55 | PCM.PROG ---
Progress Note - Progress Note for Day of Date of Exam: 01/27/22 - Subjective Subjective: WAS ADMITTED FOR TREATMENT OF PNEUMONIA, UTI, ANEMIA, AND BLEEDING HEMORRHOIDS. TODAY, HE IS ALERT AND ORIENTED, SITTING UP IN BED ON MORNING ROUNDS. HE CONTINUES WITH COMPLAINTS OF PRODUCTIVE COUGH, SHORTNESS OF BREATH, AND GENERALIZED WEAKNESS. ON EXAMINATION, HEART IS REGULAR IN RATE AND RHYTHM. BILATERAL LUNGS NOTED WITH DIMINISHED LUNG SOUNDS THROUGHOUT. COUGH IS PRODUCTIVE OF THICK, YELLOW SPUTUM. ABDOMEN IS ROUND, SOFT, AND NOTED WITH SUPRAPUBIC TENDERNESS. NORMAL BOWEL SOUNDS NOTED IN ALL QUADRANTS. INDWELLING PATEL NOTED TO BEDSIDE DRAINAGE. TRACE LOWER EXTREMITY EDEMA NOTED. HIS VITALS THIS MORNING ARE: 97.4-81-20-99%-144/72. LABS WERE OBTAINED. ABNORMAL LAB VALUES INCLUDE THE FOLLOWING: RBC 2.85, HGB 7.7, HCT 23.8, INR 1.71, CALCIUM 7.9, AST 39, TOTAL PROTEIN 6.1, ALBUMIN 2.3. BLOOD AND SPUTUM CULTURES ARE PENDING. AN AIT RESPIRATORY PANEL IS ALSO PENDING. URINE CULTURE IS POSITIVE FOR YEAST AND ENTEROBACTER CLOACAE. IT IS SENSITIVE TO THE ANTIBIOTICS THAT HE IS CURRENTLY ON. HE IS CURRENTLY ON NORMAL SALINE AT 50 ML/HR, TPN AT 40 ML/HR, ALBUMIN 25% IV DAILY, ZOSYN 3.375G IV TID, LEVAQUIN 500MG IV DAILY, DIFLUCAN 200MG IV DAILY, TESSALON PERLES 200MG TID, PEPCID 20MG IV Q12H, PROTONIX 40MG IV BID, GI COCKTAIL 15ML PO QID, DUONEBS QID, PULMICORT NEBS BID, NORCO 7.5/325MG PO Q6H PRN, AND THE POTASSIUM AND MAGNESIUM PROTOCOLS. WE WILL CONTINUE WITH CURRENT PLAN OF CARE TODAY. PHYSICAL THERAPY WILL CONTINUE TO WORK WITH HIM. OTHERWISE, WE PLAN TO FOLLOW-UP WITH AM LABS AND CONTINUE TO MONITOR. TIME SPENT ON CLINICAL ASSESSMENT, REVIEWING LABS AND IMAGING, DECISION MAKING, AND DOCUMENTATION GREATER THAN 45 MINUTES. - Past Medical Family Social History Past Med/Fam/Surg Hx: No changes since H&P Allergies: Allergies No Known Drug Allergies Allergy (Verified 01/24/22 17:26) - Review of Systems ROS: No change since H&P - Vital Signs and I&O's Vital Signs: Temperature 97.4 F Pulse Rate [Right Brachial] 81 Pulse Rate 71 Respiratory Rate 20 Blood Pressure [Right Arm] 144/72 Blood Pressure 109/61 O2 Sat by Pulse Oximetry 91 Intake and Output: Intake & Output 01/24/22 01/25/22 01/26/22 01/27/22 11:59 11:59 11:59 11:59 Intake Total 450 / 450 2661 / 2661 3326 / 3326 Output Total 925 / 925 1180 / 1180 Balance 450 / 450 1736 / 1736 2146 / 2146 - Physical Exam Oriented: Normal Eyes: Normal Ear: Normal Nose: Normal Throat: Normal Respiratory: Generalized, Diminished Cardiovascular: Normal : Normal Auscultation: Bowel Sounds: Normal Palpation: Normal Tenderness: Suprapubic Skin: Normal Musculoskeletal: Normal Psychiatric: Normal Mood Description: Calm Affect: Normal Speech Pattern: Clear, Appropriate - Laboratory and Diagnostics Result Diagrams: 01/27/22 04:48 01/27/22 04:48 Labs: 01/25/22 02:00 Sputum - Expectorated Sputum Sputum Culture - Final 01/25/22 02:00 Sputum - Expectorated Sputum - Final 01/24/22 19:35 Blood Blood Culture - Preliminary 01/24/22 18:51 Blood Blood Culture - Preliminary 01/24/22 21:58 Urine,Catheterized Urine Culture - Final Enterobacter Cloacae Laboratory WBC 6.3 X10^3/uL (3.6-10.0) 01/27/22 04:48 RBC 2.85 X10^6/uL (4.7-6.0) L 01/27/22 04:48 Hgb 7.7 g/dL (13.5-18.0) L 01/27/22 04:48 Hct 23.8 % (42.0-54.0) L 01/27/22 04:48 MCV 83.5 fL (80.0-100.0) 01/27/22 04:48 MCH 26.8 pg (27.0-34.0) L 01/27/22 04:48 MCHC 32.1 g/dL (33.0-35.0) L 01/27/22 04:48 RDW 18.5 % (11.6-16.5) H 01/27/22 04:48 Plt Count 197 X10^3/uL (150.0-450.0) 01/27/22 04:48 MPV 6.7 fL (7.4-11.0) L 01/27/22 04:48 Neut % (Auto) 62.8 % (42.0-75.0) 01/27/22 04:48 Lymph % (Auto) 25.5 % (21.0-51.0) 01/27/22 04:48 [place] % (Auto) 8.3 % (0.0-13.0) 01/27/22 04:48 Eos % (Auto) 3.1 % (0.9-2.9) H 01/27/22 04:48 Baso % (Auto) 0.3 % (0.2-1.0) 01/27/22 04:48 Neut # (Auto) 4.0 x10^3/uL (2.2-4.8) 01/27/22 04:48 Lymph # (Auto) 1.6 X10^3/uL (1.3-2.9) 01/27/22 04:48 [place] # (Auto) 0.5 x10^3/uL (0.3-0.8) 01/27/22 04:48 Eos # (Auto) 0.2 x10^3/uL (0.0-0.2) 01/27/22 04:48 Baso # (Auto) 0.0 X10^3/uL (0.0-0.1) 01/27/22 04:48 Absolute Nucleated RBC 0.1 /100WBC 01/27/22 04:48 PT 19.2 SECONDS (11.8-14.3) 01/27/22 04:48 INR Target Range - 01/27/22 04:48 INR 1.71 (0.8-1.3) H 01/27/22 04:48 APTT 50.7 SECONDS (22.9-36.5) H 01/25/22 05:40 PTT Comment - 01/25/22 05:40 Sodium 141 mmol/L (136-145) 01/27/22 04:48 Corrected Sodium TNP 01/27/22 04:48 Potassium 3.7 mmol/L (3.5-5.1) 01/27/22 04:48 Chloride 104 mmol/L (98-107) 01/27/22 04:48 Carbon Dioxide 29.4 mmol/L (21-32) 01/27/22 04:48 BUN 8 mg/dL (7-18) 01/27/22 04:48 Creatinine 1.24 mg/dL (0.70-1.30) 01/27/22 04:48 Est GFR (MDRD) Af Amer > 60 (>60) 01/27/22 04:48 Est GFR (MDRD) Non-Af 60 (>60) 01/27/22 04:48 Glucose 98 mg/dL (65-99) 01/27/22 04:48 Lactic Acid 1.8 mmol/L (0.4-2.0) 01/24/22 18:51 Calcium 7.9 mg/dL (8.5-10.1) L 01/27/22 04:48 Corrected Calcium 9.3 mg/dL (8.5-10.1) 01/27/22 04:48 Magnesium 1.8 mg/dL (1.7-2.9) 01/25/22 05:40 Total Bilirubin 0.30 mg/dL (0.2-1.0) 01/27/22 04:48 AST 39 Units/L (15-37) H 01/27/22 04:48 ALT 35 Units/L (12-78) 01/27/22 04:48 Alkaline Phosphatase 55 Units/L (46-116) 01/27/22 04:48 Creatine Kinase 172 Units/L (39-308) 01/25/22 05:40 CK-MB (CK-2) < 1.0 ng/mL (0-4.0) 01/25/22 05:40 CK/CKMB % Calc 0.6 % (<4) 01/25/22 05:40 Troponin I High Sens 31.1 ng/L (4.0-60.0) 01/25/22 05:40 Total Protein 6.1 g/dL (6.4-8.2) L 01/27/22 04:48 Albumin 2.3 g/dL (3.4-5.0) L 01/27/22 04:48 Globulin 3.8 g/dL (2.5-4.5) 01/27/22 04:48 Albumin/Globulin Ratio 0.6 Ratio (1.1-2.1) L 01/27/22 04:48 Specimen Type Catherized urine 01/24/22 21:58 Urine Color Yellow (YELLOW) 01/24/22 21:58 Urine Appearance Cloudy (CLEAR) 01/24/22 21:58 Urine pH 5.0 (5.0 - 8.0) 01/24/22 21:58 Ur Specific [place] 1.020 (1.000-1.030) 01/24/22 21:58 Urine Protein 2+ (NEGATIVE) 01/24/22 21:58 Urine Glucose (UA) 2+ (NEGATIVE) 01/24/22 21:58 Urine Ketones 1+ (NEGATIVE) 01/24/22 21:58 Urine Blood 3+ (NEGATIVE) 01/24/22 21:58 Urine Nitrite Positive (NEGATIVE) 01/24/22 21:58 Urine Bilirubin Negative (NEGATIVE) 01/24/22 21:58 Urine Urobilinogen Normal (NORMAL) 01/24/22 21:58 Ur Leukocyte Esterase 3+ (NEGATIVE) 01/24/22 21:58 Urine RBC Tntc /HPF (0-3) A 01/24/22 21:58 Urine WBC Tntc /HPF (0-5) A 01/24/22 21:58 Ur Squamous Epith Cells Rare /HPF (NEGATIVE) 01/24/22 21:58 Urine Bacteria 1+ /HPF (NEGATIVE) 01/24/22 21:58 Urine Yeast Numerous /HPF (NEGATIVE) 01/24/22 21:58 Ur Culture Indicated? Yes/culture set up 01/24/22 21:58 SARS CoV-2 RNA Rapid LANCE Negative (NEGATIVE) 01/25/22 00:11 - Plan (1) Pneumonia Status: Acute Qualifiers: Pneumonia type: due to unspecified organism Laterality: unspecified laterality Lung location: unspecified part of lung Qualified Code(s): J18.9 - Pneumonia, unspecified organism Plan: NORMAL SALINE AT 50 ML/HR, TPN AT 40 ML/HR, ALBUMIN 25% IV DAILY, TESSALON PERLES 200MG PO TID, ZOSYN 3.375G IV TID, LEVAQUIN 500MG IV DAILY, PEPCID 20MG IV Q12H, PROTONIX 40MG IV BID, GI COCKTAIL 15ML PO QID, DUONEBS QID, PULMICORT NEBS BID, NORCO 7.5/325MG PO Q6H PRN, AND THE POTASSIUM AND MAGNESIUM PROTOCOLS. (2) UTI (urinary tract infection) Status: Acute Qualifiers: Urinary tract infection type: acute cystitis Hematuria presence: with hematuria Qualified Code(s): N30.01 - Acute cystitis with hematuria (3) Anemia Status: Acute Qualifiers: Anemia type: iron deficiency Iron deficiency anemia type: unspecified iron deficiency Qualified Code(s): D50.9 - Iron deficiency anemia, unspecified (4) Hypoalbuminemia due to protein-calorie malnutrition Status: Acute (5) Bleeding external hemorrhoids Status: Acute (6) HTN (hypertension) Status: Chronic Qualifiers: Hypertension type: primary hypertension Qualified Code(s): I10 - Essential (primary) hypertension (7) COPD (chronic obstructive pulmonary disease) Status: Chronic Qualifiers: COPD type: unspecified COPD Qualified Code(s): J44.9 - Chronic obstructive pulmonary disease, unspecified (8) CAD (coronary artery disease) Status: Chronic Qualifiers: Coronary Disease-Associated Artery/Lesion type: bypass graft [place] vs. transplanted heart: [place] heart Associated angina: unspecified whether angina present Qualified Code(s): I25.810 - Atherosclerosis of coronary artery bypass graft(s) without angina pectoris (9) GERD (gastroesophageal reflux disease) Status: Chronic Qualifiers: Esophagitis presence: esophagitis presence not specified Qualified Code(s): K21.9 - Gastro-esophageal reflux disease without esophagitis (10) Renal disease Status: Chronic (11) Prostate CA Status: Acute
[2022-01-27] MEDS: DAPAGLIFLOZIN 10 MG PO SCH (15:20)
[2022-01-27] MEDS: PATIENT'S HOME MEDICATION (Alfuzosin 10 mg Tablet Extended Release 24 Hr) PO SCH (15:20)
[2022-01-27] MEDS: CLINIMIX 4.25%-5% 1,000 ML with MVI INJ (ADULT) 10 ML IV SCH ×4 (15:21→22:09)
--- NOTE | 2022-01-27 17:13 | RAD ---
HISTORYcentral line placement (right groin) Relevant Clinical InformationSTUDYCHEST, 1 VIEWCOMPARISONChest x-ray dated same day at 5:05 a.m.FINDINGSThe trachea is midline. The cardiac silhouette is unchanged. Postsurgical changes status post CABG. Multi lead right chest cardiac pacemaker. Lung aeration appears unchanged. No significant pleural effusion or pneumothorax. The bony thorax is unremarkable.IMPRESSIONNo significant change.Electronically signed by: JULIUS CURRAN (Jan 27, 2022 17:13:37)
[2022-01-27] MEDS: ALBUMIN HUMAN 25%- 100 ML 100 ML IV SCH (17:15)
[2022-01-27] MEDS: PEPCID 20 MG VIAL 20 MG in NS 50 ML IV 50 ML IV SCH ×2 (17:16→21:05)
[2022-01-27] MEDS: DIFLUCAN 200 MG IV PREMIX* 200 MG/100 ML BAG IV SCH (19:35)
[2022-01-27] MEDS: SNACK - Diabetic Appropriate PO SCH (21:03)
[2022-01-27] MEDS: COUMADIN TAB 5 MG (JANTOVEN) PO SCH (21:03)
[2022-01-27] MEDS: LOVAZA PO SCH (21:04)
[2022-01-27] MEDS: LIPITOR TAB 40 MG PO SCH (21:04)
[2022-01-27] MEDS: ZyrTEC TAB 10 MG PO SCH (21:05)
[2022-01-27] MEDS: ZOLOFT PO SCH (21:05)
[2022-01-27] MEDS: SINGULAIR TAB 10 MG PO SCH (21:05)
[2022-01-27] MEDS: MYSOLINE PO SCH (21:05)
[2022-01-27] MEDS: NORCO 7.5/325 MG TAB PO PRN (21:37)
[2022-01-28 05:34] LABS: BASOPHILS % (AUTO) 0.4 % (0.2-1.0); EOSINOPHILS # (AUTO) 0.2 x10^3/uL (0.0-0.2); EOSINOPHILS % (AUTO) 4.1 % (0.9-2.9); HEMATOCRIT 22.3 % (42.0-54.0); HEMOGLOBIN 7.1 g/dL (13.5-18.0); LYMPHOCYTES # (AUTO) 2.1 X10^3/uL (1.3-2.9); LYMPHOCYTES % (AUTO) 34.9 % (21.0-51.0); MEAN CORPUSCULAR HEMOGLOBIN 26.3 pg (27.0-34.0); MEAN CORPUSCULAR HGB CONC 31.8 g/dL (33.0-35.0); MEAN CORPUSCULAR VOLUME 82.5 fL (80.0-100.0); MEAN PLATELET VOLUME 6.7 fL (7.4-11.0); MONOCYTES # (AUTO) 0.6 x10^3/uL (0.3-0.8); MONOCYTES % (AUTO) 9.7 % (0.0-13.0); NEUTROPHILS # (AUTO) 3.1 x10^3/uL (2.2-4.8); NEUTROPHILS % (AUTO) 50.9 % (42.0-75.0); RED CELL DISTRIBUTION WIDTH 18.4 % (11.6-16.5)
[2022-01-28] MEDS: ZOSYN VIAL 3.375 GRAMS 3.375 G in NS 100 ML IV 100 ML IV SCH ×3 (05:34→23:20)
[2022-01-28] MEDS: TESSALON PERLES PO SCH ×3 (05:34→22:31)
[2022-01-28 05:48] LABS: ALANINE AMINOTRANSFERASE 55 Units/L (12-78); ALBUMIN 2.3 g/dL (3.4-5.0); ALKALINE PHOSPHATASE 54 Units/L (46-116); ASPARTATE AMINO TRANSFERASE 62 Units/L (15-37); BLOOD UREA NITROGEN 7 mg/dL (7-18); CHLORIDE 107 mmol/L (98-107); COR CA(FOR HYPOALB) 9.4 mg/dL (8.5-10.1); CREATININE 1.05 mg/dL (0.70-1.30); SODIUM 142 mmol/L (136-145); TOTAL PROTEIN 5.6 g/dL (6.4-8.2); eGFR NON BLACK RACES > 60 (>60)
--- NOTE | 2022-01-28 05:52 | RAD ---
PROCEDURE: Chest X-ray 1 View .HISTORY: Dyspnea.TECHNIQUE: AP view .COMPARISON: 01/27/2022.TECHNICAL QUALITY: Satisfactory .FINDINGS:Normal size heart with pacemaker on the right and previous sternotomy.Mediastinum and hilar regions show no masses or lymphadenopathy .Normal central vascularity .No pulmonary consolidation, masses, pleural fluid, or pneumothorax .No acute bony abnormality .IMPRESSION:No active cardiopulmonary disease .Electronically signed by: Harman Disla (Jan 28, 2022 05:52:24)
[2022-01-28] MEDS: BUMEX TAB 1 MG PO SCH ×2 (08:00→22:31)
[2022-01-28] MEDS: ALBUMIN HUMAN 25%- 100 ML 100 ML IV SCH (08:00)
[2022-01-28] MEDS: PROTONIX INJ 40 MG VIAL IVP SCH ×2 (08:00→22:24)
[2022-01-28] MEDS: COZAAR PO SCH (08:01)
[2022-01-28] MEDS: FERROUS GLUCONATE PO SCH (08:01)
[2022-01-28] MEDS: K-DUR TAB 20 MEQ PO SCH (08:02)
[2022-01-28] MEDS: PROSCAR PO SCH (08:03)
[2022-01-28] MEDS: SYNTHROID 50 mcg TAB PO SCH (08:03)
[2022-01-28] MEDS: VITAMIN D3 125 mcg (5,000 UNITS) PO SCH (08:04)
[2022-01-28] MEDS: VITAMIN B-12 PO SCH (08:04)
[2022-01-28] MEDS: PATIENT'S HOME MEDICATION (Alfuzosin 10 mg Tablet Extended Release 24 Hr) PO SCH (08:16)
[2022-01-28] MEDS: ASTELIN NASAL SPRAY ENOSTRIL SCH ×2 (08:17→22:46)
[2022-01-28] MEDS: DAPAGLIFLOZIN 10 MG PO SCH (08:17)
[2022-01-28] MEDS: LEVSIN/MAALOX/LIDOC VISC PO SCH ×4 (08:17→22:26)
[2022-01-28] MEDS: MUCOMYST (RESPIRATORY USE ONLY) NEB SCH ×2 (08:30→20:50)
[2022-01-28] MEDS: PULMICORT NEB TX 0.5 MG NEB SCH ×2 (08:30→20:50)
[2022-01-28] MEDS: DUONEB 0.5 MG/3 MG (3 mL) NEB SCH ×4 (08:30→20:50)
[2022-01-28] MEDS ORDERED: NS 500 ML IV 500 ML IV ONE (09:13)
[2022-01-28] MEDS ORDERED: BENADRYL INJ 50 MG VIAL IVP PRN (09:13)
[2022-01-28] MEDS ORDERED: TYLENOL 325 MG TAB PO PRN (09:13)
[2022-01-28] MEDS ORDERED: DILAUDID INJ IVP ONE (09:14)
[2022-01-28] MEDS ORDERED: TORADOL 15 MG VIAL IVP ONE (09:16)
[2022-01-28] MEDS: PEPCID 20 MG VIAL 20 MG in NS 50 ML IV 50 ML IV SCH ×2 (09:54→22:37)
[2022-01-28] MEDS: DIFLUCAN 200 MG IV PREMIX* 200 MG/100 ML BAG IV SCH (10:16)
[2022-01-28] MEDS: LEVAQUIN PREMIX IV 500 MG 500 MG/100 ML BAG IV SCH (10:16)
[2022-01-28] MEDS ORDERED: NS 250 ML IV 250 ML IV ONE (13:29)
[2022-01-28] MEDS: CLINIMIX 4.25%-5% 1,000 ML with MVI INJ (ADULT) 10 ML IV SCH ×4 (15:02→16:43)
[2022-01-28] MEDS: K-DUR TAB 20 MEQ PO PRN (18:37)
[2022-01-28 20:05] LABS: HEMATOCRIT 25.4 % (42.0-54.0); HEMOGLOBIN 8.2 g/dL (13.5-18.0)
[2022-01-28] MEDS: NS 1,000 ML IV 1,000 ML IV SCH (21:45)
[2022-01-28] MEDS: ZyrTEC TAB 10 MG PO SCH (22:28)
[2022-01-28] MEDS: LOVAZA PO SCH (22:28)
[2022-01-28] MEDS: SINGULAIR TAB 10 MG PO SCH (22:29)
[2022-01-28] MEDS: ZOLOFT PO SCH (22:29)
[2022-01-28] MEDS: MYSOLINE PO SCH (22:29)
[2022-01-28] MEDS: COUMADIN TAB 5 MG (JANTOVEN) PO SCH (22:31)
[2022-01-28] MEDS: LIPITOR TAB 40 MG PO SCH (22:34)
[2022-01-28] MEDS: NORCO 7.5/325 MG TAB PO PRN (22:35)
[2022-01-28] MEDS: SNACK - Diabetic Appropriate PO SCH (22:35)
[2022-01-28] MEDS ORDERED: ASTELIN NASAL SPRAY ENOSTRIL ONE (22:46)
[2022-01-29] MEDS ORDERED: NS 250 ML IV 250 ML IV ONE (01:39)
--- NOTE | 2022-01-29 06:16 | RAD ---
HISTORYSOB HX: CVA, CAD, [place], HTN, ASTHMA, COPD, PROSTATE CANCER HX: CABGSTUDYCHEST, 1 [id number]/01/2022-01/24/2022FINDINGS br interstitial prominence and patchy left base opacity without consolidation, sizable effusion, or visible pneumothorax. No acute osseous finding.IMPRESSIONMild nonspecific interstitial prominence without consolidation.Electronically signed by: Omar Cole (Jan 29, 2022 06:15:56)
[2022-01-29] MEDS: TESSALON PERLES PO SCH ×3 (06:25→21:35)
[2022-01-29] MEDS: ZOSYN VIAL 3.375 GRAMS 3.375 G in NS 100 ML IV 100 ML IV SCH ×3 (06:26→22:02)
[2022-01-29 06:30] LABS: BASOPHILS % (AUTO) 0.4 % (0.2-1.0); EOSINOPHILS # (AUTO) 0.2 x10^3/uL (0.0-0.2); HEMATOCRIT 28.1 % (42.0-54.0); HEMOGLOBIN 9.3 g/dL (13.5-18.0); LYMPHOCYTES # (AUTO) 2.1 X10^3/uL (1.3-2.9); LYMPHOCYTES % (AUTO) 25.9 % (21.0-51.0); MEAN CORPUSCULAR HEMOGLOBIN 27.8 pg (27.0-34.0); MEAN CORPUSCULAR HGB CONC 33.1 g/dL (33.0-35.0); MEAN CORPUSCULAR VOLUME 84.1 fL (80.0-100.0); MEAN PLATELET VOLUME 6.7 fL (7.4-11.0); MONOCYTES # (AUTO) 0.6 x10^3/uL (0.3-0.8); MONOCYTES % (AUTO) 7.4 % (0.0-13.0); NEUTROPHILS # (AUTO) 5.1 x10^3/uL (2.2-4.8); NEUTROPHILS % (AUTO) 63.3 % (42.0-75.0); RED BLOOD COUNT 3.34 X10^6/uL (4.7-6.0); RED CELL DISTRIBUTION WIDTH 17.7 % (11.6-16.5); WHITE BLOOD COUNT 8.1 X10^3/uL (3.6-10.0)
[2022-01-29 06:34] LABS: ALANINE AMINOTRANSFERASE 57 Units/L (12-78); ALBUMIN 2.6 g/dL (3.4-5.0); ALKALINE PHOSPHATASE 59 Units/L (46-116); ASPARTATE AMINO TRANSFERASE 53 Units/L (15-37); BLOOD UREA NITROGEN 11 mg/dL (7-18); CALCIUM 8.3 mg/dL (8.5-10.1); CARBON DIOXIDE 33.8 mmol/L (21-32); CHLORIDE 105 mmol/L (98-107); COR CA(FOR HYPOALB) 9.4 mg/dL (8.5-10.1); CREATININE 1.14 mg/dL (0.70-1.30); MAGNESIUM 1.9 mg/dL (1.7-2.9); SODIUM 142 mmol/L (136-145); TOTAL PROTEIN 6.2 g/dL (6.4-8.2); eGFR NON BLACK RACES > 60 (>60)
[2022-01-29] MEDS: LEVSIN/MAALOX/LIDOC VISC PO SCH ×4 (08:06→21:34)
[2022-01-29] MEDS: LEVAQUIN PREMIX IV 500 MG 500 MG/100 ML BAG IV SCH (08:07)
[2022-01-29] MEDS: BUMEX TAB 1 MG PO SCH ×2 (08:08→21:36)
[2022-01-29] MEDS: ASTELIN NASAL SPRAY ENOSTRIL SCH ×2 (08:08→21:40)
[2022-01-29] MEDS: PROTONIX INJ 40 MG VIAL IVP SCH ×2 (08:09→21:35)
[2022-01-29] MEDS: VITAMIN D3 125 mcg (5,000 UNITS) PO SCH (08:09)
[2022-01-29] MEDS: VITAMIN B-12 PO SCH (08:09)
[2022-01-29] MEDS: SYNTHROID 50 mcg TAB PO SCH (08:09)
[2022-01-29] MEDS: FERROUS GLUCONATE PO SCH (08:10)
[2022-01-29] MEDS: PROSCAR PO SCH (08:11)
[2022-01-29] MEDS: K-DUR TAB 20 MEQ PO SCH (08:11)
--- NOTE | 2022-01-29 08:21 | PCM.PROG ---
Progress Note - Progress Note for Day of Date of Exam: 01/28/22 - Subjective Subjective: WAS ADMITTED FOR TREATMENT OF PNEUMONIA, UTI, AND ANEMIA. TODAY, HE IS ALERT AND ORIENTED, SITTING UP IN BED ON MORNING ROUNDS. HE CONTINUES WITH COMPLAINTS OF PRODUCTIVE COUGH, SHORTNESS OF BREATH, AND GENERALIZED WEAKNESS. ON EXAMINATION, HEART IS REGULAR IN RATE AND RHYTHM. BILAT ERAL LUNGS NOTED WITH DIMINISHED LUNG SOUNDS THROUGHOUT. COUGH IS PRODUCTIVE OF THICK, YELLOW SPUTUM. ABDOMEN IS ROUND, SOFT, AND NOTED WITH SUPRAPUBIC TENDERNESS. NORMAL BOWEL SOUNDS NOTED IN ALL QUADRANTS. INDWELLING PATEL NOTED TO BEDSIDE DRAINAGE. TRACE LOWER EXTREMITY EDEMA NOTED. HIS VITALS THIS MORNING ARE: 97.7-72-20-100%-159/71. LABS WERE OBTAINED. ABNORMAL LAB VALUES INCLUDE THE FOLLOWING: RBC 2.70, HGB 7.1, HCT 22.3, POTASSIUM 3.4, CALCIUM 8.0, AST 62, VRP 87.20, TOTAL PROTEIN 5.6, ALBUMIN 2.3. BLOOD AND SPUTUM CULTURES ARE PENDING. URINE CULTURE POSITIVE FOR YEAST, ENTEROCOCCUS, AND E.COLI. IT IS SENSITIVE TO THE ANTIBIOTICS THAT HE IS CURRENTLY ON. HE IS CURRENTLY ON NORMAL SALINE AT 50 ML/HR, TPN AT 40 ML/HR, ALBUMIN 25% IV DAILY, ZOSYN 3.375G IV TID, LEVAQUIN 500MG IV DAILY, DIFLUCAN 200MG IV DAILY, TESSALON PERLES 200MG TID, PEPCID 20MG IV Q12H, PROTONIX 40MG IV BID, GI COCKTAIL 15ML PO QID, DUONEBS QID, PULMICORT NEBS BID, NORCO 7.5/325MG PO Q6H PRN, AND THE POTASSIUM AND MAGNESIUM PROTOCOLS. TODAY, WE WILL TRANSFUSE TWO UNITS OF PACKED RED BLOOD CELLS. PATEL CATHETER IS DUE TO BE CHANGED. WE WILL CHANGE IT TODAY. PHYSICAL THERAPY WILL CONTINUE TO WORK WITH HIM. OTHERWISE, WE PLAN TO FOLLOW-UP WITH AM LABS AND CONTINUE TO MONITOR. TIME SPENT ON CLINICAL ASSESSMENT, REVIEWING LABS AND IMAGING, DECISION MAKING, AND DOCUMENTATION GREATER THAN 45 MINUTES. - Past Medical Family Social History Past Med/Fam/Surg Hx: No changes since H&P Allergies: Allergies No Known Drug Allergies Allergy (Verified 01/24/22 17:26) - Review of Systems ROS: No change since H&P - Vital Signs and I&O's Vital Signs: Temperature 98.2 F Pulse Rate [Right Brachial] 74 Pulse Rate 72 Respiratory Rate 20 Blood Pressure [Right Arm] 159/67 Blood Pressure 109/61 O2 Sat by Pulse Oximetry 100 Intake and Output: Intake & Output 01/26/22 01/27/22 01/28/22 01/29/22 11:59 11:59 11:59 11:59 Intake Total 2661 / 2661 3326 / 3326 2099 / 2099 2610 / 2610 Output Total 925 / 925 1180 / 1180 2300 / 2300 1100 / 1100 Balance 1736 / 1736 2146 / 2146 -201 / -201 1510 / 1510 - Physical Exam Oriented: Normal Eyes: Normal Ear: Normal Nose: Normal Throat: Normal Respiratory: Generalized, Diminished Cardiovascular: Normal : Normal Auscultation: Bowel Sounds: Normal Tenderness: Suprapubic Skin: Normal Musculoskeletal: Normal Psychiatric: Normal Mood Description: Calm Affect: Normal Speech Pattern: Clear, Appropriate - Laboratory and Diagnostics Result Diagrams: 01/29/22 06:00 01/29/22 06:00 Labs: 01/25/22 02:00 Sputum - Expectorated Sputum Sputum Culture - Final 01/25/22 02:00 Sputum - Expectorated Sputum - Final 01/24/22 19:35 Blood Blood Culture - Preliminary 01/24/22 18:51 Blood Blood Culture - Preliminary 01/24/22 21:58 Urine,Catheterized Urine Culture - Final Enterobacter Cloacae Laboratory WBC 8.1 X10^3/uL (3.6-10.0) 01/29/22 06:00 RBC 3.34 X10^6/uL (4.7-6.0) L 01/29/22 06:00 Hgb 9.3 g/dL (13.5-18.0) L 01/29/22 06:00 Hct 28.1 % (42.0-54.0) L 01/29/22 06:00 MCV 84.1 fL (80.0-100.0) 01/29/22 06:00 MCH 27.8 pg (27.0-34.0) 01/29/22 06:00 MCHC 33.1 g/dL (33.0-35.0) 01/29/22 06:00 RDW 17.7 % (11.6-16.5) H 01/29/22 06:00 Plt Count 199 X10^3/uL (150.0-450.0) 01/29/22 06:00 MPV 6.7 fL (7.4-11.0) L 01/29/22 06:00 Neut % (Auto) 63.3 % (42.0-75.0) 01/29/22 06:00 Lymph % (Auto) 25.9 % (21.0-51.0) 01/29/22 06:00 [place] % (Auto) 7.4 % (0.0-13.0) 01/29/22 06:00 Eos % (Auto) 3.0 % (0.9-2.9) H 01/29/22 06:00 Baso % (Auto) 0.4 % (0.2-1.0) 01/29/22 06:00 Neut # (Auto) 5.1 x10^3/uL (2.2-4.8) H 01/29/22 06:00 Lymph # (Auto) 2.1 X10^3/uL (1.3-2.9) 01/29/22 06:00 [place] # (Auto) 0.6 x10^3/uL (0.3-0.8) 01/29/22 06:00 Eos # (Auto) 0.2 x10^3/uL (0.0-0.2) 01/29/22 06:00 Baso # (Auto) 0.0 X10^3/uL (0.0-0.1) 01/29/22 06:00 Absolute Nucleated RBC 0.1 /100WBC 01/29/22 06:00 ESR 52 MM/HOUR (0-15) H 01/28/22 05:04 PT 18.0 SECONDS (11.8-14.3) 01/29/22 06:00 INR Target Range - 01/29/22 06:00 INR 1.55 (0.8-1.3) H 01/29/22 06:00 APTT 50.7 SECONDS (22.9-36.5) H 01/25/22 05:40 PTT Comment - 01/25/22 05:40 Sodium 142 mmol/L (136-145) 01/29/22 06:00 Corrected Sodium TNP 01/29/22 06:00 Potassium 3.8 mmol/L (3.5-5.1) 01/29/22 06:00 Chloride 105 mmol/L (98-107) 01/29/22 06:00 Carbon Dioxide 33.8 mmol/L (21-32) H 01/29/22 06:00 BUN 11 mg/dL (7-18) 01/29/22 06:00 Creatinine 1.14 mg/dL (0.70-1.30) 01/29/22 06:00 Est GFR (MDRD) Af Amer > 60 (>60) 01/29/22 06:00 Est GFR (MDRD) Non-Af > 60 (>60) 01/29/22 06:00 Glucose 101 mg/dL (65-99) H 01/29/22 06:00 Lactic Acid 1.8 mmol/L (0.4-2.0) 01/24/22 18:51 Calcium 8.3 mg/dL (8.5-10.1) L 01/29/22 06:00 Corrected Calcium 9.4 mg/dL (8.5-10.1) 01/29/22 06:00 Magnesium 1.9 mg/dL (1.7-2.9) 01/29/22 06:00 Total Bilirubin 0.40 mg/dL (0.2-1.0) 01/29/22 06:00 AST 53 Units/L (15-37) H 01/29/22 06:00 ALT 57 Units/L (12-78) 01/29/22 06:00 Alkaline Phosphatase 59 Units/L (46-116) 01/29/22 06:00 Creatine Kinase 172 Units/L (39-308) 01/25/22 05:40 CK-MB (CK-2) < 1.0 ng/mL (0-4.0) 01/25/22 05:40 CK/CKMB % Calc 0.6 % (<4) 01/25/22 05:40 Troponin I High Sens 31.1 ng/L (4.0-60.0) 01/25/22 05:40 C-Reactive Protein 87.20 mg/L (0-3.0) H 01/28/22 05:04 Total Protein 6.2 g/dL (6.4-8.2) L 01/29/22 06:00 Albumin 2.6 g/dL (3.4-5.0) L 01/29/22 06:00 Globulin 3.6 g/dL (2.5-4.5) 01/29/22 06:00 Albumin/Globulin Ratio 0.7 Ratio (1.1-2.1) L 01/29/22 06:00 Specimen Type Catherized urine 01/24/22 21:58 Urine Color Yellow (YELLOW) 01/24/22 21:58 Urine Appearance Cloudy (CLEAR) 01/24/22 21:58 Urine pH 5.0 (5.0 - 8.0) 01/24/22 21:58 Ur Specific [place] 1.020 (1.000-1.030) 01/24/22 21:58 Urine Protein 2+ (NEGATIVE) 01/24/22 21:58 Urine Glucose (UA) 2+ (NEGATIVE) 01/24/22 21:58 Urine Ketones 1+ (NEGATIVE) 01/24/22 21:58 Urine Blood 3+ (NEGATIVE) 01/24/22 21:58 Urine Nitrite Positive (NEGATIVE) 01/24/22 21:58 Urine Bilirubin Negative (NEGATIVE) 01/24/22 21:58 Urine Urobilinogen Normal (NORMAL) 01/24/22 21:58 Ur Leukocyte Esterase 3+ (NEGATIVE) 01/24/22 21:58 Urine RBC Tntc /HPF (0-3) A 01/24/22 21:58 Urine WBC Tntc /HPF (0-5) A 01/24/22 21:58 Ur Squamous Epith Cells Rare /HPF (NEGATIVE) 01/24/22 21:58 Urine Bacteria 1+ /HPF (NEGATIVE) 01/24/22 21:58 Urine Yeast Numerous /HPF (NEGATIVE) 01/24/22 21:58 Ur Culture Indicated? Yes/culture set up 01/24/22 21:58 Stool Description 10g brown with blood 01/29/22 06:56 Stl Occult Blood (IFOB) Positive (NEGATIVE) A 01/29/22 06:56 SARS CoV-2 RNA Rapid LANCE Negative (NEGATIVE) 01/25/22 00:11 Blood Type O NEGATIVE 01/28/22 09:40 Antibody Screen Negative 01/28/22 09:40 Crossmatch See Detail 01/28/22 09:40 - Plan (1) Pneumonia Status: Acute Qualifiers: Pneumonia type: due to unspecified organism Laterality: unspecified laterality Lung location: unspecified part of lung Qualified Code(s): J18.9 - Pneumonia, unspecified organism Plan: NORMAL SALINE AT 50 ML/HR, TPN AT 40 ML/HR, ALBUMIN 25% IV DAILY, TESSALON PERLES 200MG PO TID, ZOSYN 3.375G IV TID, LEVAQUIN 500MG IV DAILY, PEPCID 20MG IV Q12H, PROTONIX 40MG IV BID, GI COCKTAIL 15ML PO QID, DUONEBS QID, PULMICORT NEBS BID, NORCO 7.5/325MG PO Q6H PRN, AND THE POTASSIUM AND MAGNESIUM PROTOCOLS. (2) UTI (urinary tract infection) Status: Acute Qualifiers: Urinary tract infection type: acute cystitis Hematuria presence: with hematuria Qualified Code(s): N30.01 - Acute cystitis with hematuria (3) Anemia Status: Acute Qualifiers: Anemia type: iron deficiency Iron deficiency anemia type: unspecified iron deficiency Qualified Code(s): D50.9 - Iron deficiency anemia, unspecified Plan: TRANSFUSE 2 UNITS PRBC (4) Hypoalbuminemia due to protein-calorie malnutrition Status: Acute (5) Bleeding external hemorrhoids Status: Acute (6) HTN (hypertension) Status: Chronic Qualifiers: Hypertension type: primary hypertension Qualified Code(s): I10 - Essential (primary) hypertension (7) COPD (chronic obstructive pulmonary disease) Status: Chronic Qualifiers: COPD type: unspecified COPD Qualified Code(s): J44.9 - Chronic obstructive pulmonary disease, unspecified (8) CAD (coronary artery disease) Status: Chronic Qualifiers: Coronary Disease-Associated Artery/Lesion type: bypass graft [place] vs. transplanted heart: [place] heart Associated angina: unspecified whether angina present Qualified Code(s): I25.810 - Atherosclerosis of coronary artery bypass graft(s) without angina pectoris (9) GERD (gastroesophageal reflux disease) Status: Chronic Qualifiers: Esophagitis presence: esophagitis presence not specified Qualified Code(s): K21.9 - Gastro-esophageal reflux disease without esophagitis (10) Renal disease Status: Chronic (11) Prostate CA Status: Acute
[2022-01-29] MEDS: COZAAR PO SCH (08:31)
[2022-01-29] MEDS: PATIENT'S HOME MEDICATION (Alfuzosin 10 mg Tablet Extended Release 24 Hr) PO SCH (08:31)
[2022-01-29] MEDS: DAPAGLIFLOZIN 10 MG PO SCH (08:32)
[2022-01-29] MEDS ORDERED: LASIX IVP ONE ×2 (09:11→12:01)
[2022-01-29] MEDS ORDERED: TUSSIONEX PENNKINETIC SUSP PO PRN (09:12)
[2022-01-29] MEDS: DUONEB 0.5 MG/3 MG (3 mL) NEB SCH ×4 (09:48→20:57)
[2022-01-29] MEDS: PULMICORT NEB TX 0.5 MG NEB SCH ×2 (09:48→20:57)
--- NOTE | 2022-01-29 10:10 | PCM.PROG ---
Progress Note - Progress Note for Day of Date of Exam: 01/29/22 - Subjective Subjective: WAS ADMITTED FOR TREATMENT OF PNEUMONIA, UTI, AND ANEMIA. HE RECEIVED TWO UNITS OF PACKED RED BLOOD CELLS LAST NIGHT. TODAY, HE IS ALERT AND ORIENTED, SITTING UP IN BED ON MORNING ROUNDS. HE CONTINUES WITH COMPLAINTS OF PRODUCTIVE COUGH, SHORTNESS OF BREATH, AND GENERALIZED WEAKNESS. ON EXAMINATION, HEART IS REGULAR IN RATE AND RHYTHM. BILATERAL LUNGS NOTED WITH DIMINISHED LUNG SOUNDS THROUGHOUT. COUGH IS PRODUCTIVE OF THICK, YELLOW SPUTUM. ABDOMEN IS ROUND, SOFT, AND NOTED WITH SUPRAPUBIC TENDERNESS. NORMAL BOWEL SOUNDS NOTED IN ALL QUADRANTS. INDWELLING PATEL NOTED TO BEDSIDE DRAINAGE. TRACE LOWER EXTREMITY EDEMA NOTED. HIS VITALS THIS MORNING ARE: 97.9-77-20-93%-137/76. LABS WERE OBTAINED. ABNORMAL LAB VALUES INCLUDE THE FOLLOWING: RBC 3.34, HGB 9.3, HCT 28.1, CARBON DIOXIDE 33.8, GLUCOSE 101, CALCIUM 8.3, AST 53, CRP 87.20, TOTAL PROTEIN 6.2, ALBUMIN 2.6. BLOOD AND SPUTUM CULTURES ARE PENDING. URINE CULTURE POSITIVE FOR YEAST, ENTEROCOCCUS, AND E.COLI. IT IS SENSITIVE TO THE ANTIBIOTICS THAT HE IS CURRENTLY ON. HE IS CURRENTLY ON NORMAL SALINE AT 50 ML/HR, TPN AT 40 ML/HR, ALBUMIN 25% IV DAILY, ZOSYN 3.375G IV TID, LEVAQUIN 500MG IV DAILY, DIFLUCAN 200MG IV DAILY, TESSALON PERLES 200MG TID, PEPCID 20MG IV Q12H, PROTONIX 40MG IV BID, GI COCKTAIL 15ML PO QID, DUONEBS QID, PULMICORT NEBS BID, NORCO 7.5/325MG PO Q6H PRN, AND THE POTASSIUM AND MAGNESIUM PROTOCOLS. TODAY, WE WILL ADMINISTER LASIX 40MG IV X 1 DOSE. WE WILL START TUSSIONEX 5ML PO Q12H PRN COUGH. PHYSICAL THERAPY WILL CONTINUE TO WORK WITH HIM. OTHERWISE, WE PLAN TO FOLLOW-UP WITH AM LABS AND CONTINUE TO MONITOR. TIME SPENT ON CLINICAL ASSESSMENT, REVIEWING LABS AND IMAGING, DECISION MAKING, AND DOCUMENTATION GREATER THAN 45 MINUTES. - Past Medical Family Social History Past Med/Fam/Surg Hx: No changes since H&P Allergies: Allergies No Known Drug Allergies Allergy (Verified 01/24/22 17:26) - Review of Systems ROS: No change since H&P - Vital Signs and I&O's Vital Signs: Temperature 97.9 F Pulse Rate [Right Brachial] 77 Pulse Rate 72 Respiratory Rate 20 Blood Pressure [Right Arm] 137/76 Blood Pressure 109/61 O2 Sat by Pulse Oximetry 98 Intake and Output: Intake & Output 01/26/22 01/27/22 01/28/22 01/29/22 11:59 11:59 11:59 11:59 Intake Total 2661 / 2661 3326 / 3326 2099 / 2099 2610 / 2610 Output Total 925 / 925 1180 / 1180 2300 / 2300 1100 / 1100 Balance 1736 / 1736 2146 / 2146 -201 / -201 1510 / 1510 - Physical Exam Oriented: Normal Eyes: Normal Ear: Normal Nose: Normal Throat: Normal Respiratory: Generalized, Diminished Cardiovascular: Normal : Normal Auscultation: Bowel Sounds: Normal Tenderness: Suprapubic Skin: Normal Musculoskeletal: Normal Psychiatric: Normal Mood Description: Calm Affect: Normal Speech Pattern: Clear, Appropriate - Laboratory and Diagnostics Result Diagrams: 01/29/22 06:00 01/29/22 06:00 Labs: 01/25/22 02:00 Sputum - Expectorated Sputum Sputum Culture - Final 01/25/22 02:00 Sputum - Expectorated Sputum - Final 01/24/22 19:35 Blood Blood Culture - Preliminary 01/24/22 18:51 Blood Blood Culture - Preliminary 01/24/22 21:58 Urine,Catheterized Urine Culture - Final Enterobacter Cloacae Laboratory WBC 8.1 X10^3/uL (3.6-10.0) 01/29/22 06:00 RBC 3.34 X10^6/uL (4.7-6.0) L 01/29/22 06:00 Hgb 9.3 g/dL (13.5-18.0) L 01/29/22 06:00 Hct 28.1 % (42.0-54.0) L 01/29/22 06:00 MCV 84.1 fL (80.0-100.0) 01/29/22 06:00 MCH 27.8 pg (27.0-34.0) 01/29/22 06:00 MCHC 33.1 g/dL (33.0-35.0) 01/29/22 06:00 RDW 17.7 % (11.6-16.5) H 01/29/22 06:00 Plt Count 199 X10^3/uL (150.0-450.0) 01/29/22 06:00 MPV 6.7 fL (7.4-11.0) L 01/29/22 06:00 Neut % (Auto) 63.3 % (42.0-75.0) 01/29/22 06:00 Lymph % (Auto) 25.9 % (21.0-51.0) 01/29/22 06:00 Yell % (Auto) 7.4 % (0.0-13.0) 01/29/22 06:00 Eos % (Auto) 3.0 % (0.9-2.9) H 01/29/22 06:00 Baso % (Auto) 0.4 % (0.2-1.0) 01/29/22 06:00 Neut # (Auto) 5.1 x10^3/uL (2.2-4.8) H 01/29/22 06:00 Lymph # (Auto) 2.1 X10^3/uL (1.3-2.9) 01/29/22 06:00 Yell # (Auto) 0.6 x10^3/uL (0.3-0.8) 01/29/22 06:00 Eos # (Auto) 0.2 x10^3/uL (0.0-0.2) 01/29/22 06:00 Baso # (Auto) 0.0 X10^3/uL (0.0-0.1) 01/29/22 06:00 Absolute Nucleated RBC 0.1 /100WBC 01/29/22 06:00 ESR 52 MM/HOUR (0-15) H 01/28/22 05:04 PT 18.0 SECONDS (11.8-14.3) 01/29/22 06:00 INR Target Range - 01/29/22 06:00 INR 1.55 (0.8-1.3) H 01/29/22 06:00 APTT 50.7 SECONDS (22.9-36.5) H 01/25/22 05:40 PTT Comment - 01/25/22 05:40 Sodium 142 mmol/L (136-145) 01/29/22 06:00 Corrected Sodium TNP 01/29/22 06:00 Potassium 3.8 mmol/L (3.5-5.1) 01/29/22 06:00 Chloride 105 mmol/L (98-107) 01/29/22 06:00 Carbon Dioxide 33.8 mmol/L (21-32) H 01/29/22 06:00 BUN 11 mg/dL (7-18) 01/29/22 06:00 Creatinine 1.14 mg/dL (0.70-1.30) 01/29/22 06:00 Est GFR (MDRD) Af Amer > 60 (>60) 01/29/22 06:00 Est GFR (MDRD) Non-Af > 60 (>60) 01/29/22 06:00 Glucose 101 mg/dL (65-99) H 01/29/22 06:00 Lactic Acid 1.8 mmol/L (0.4-2.0) 01/24/22 18:51 Calcium 8.3 mg/dL (8.5-10.1) L 01/29/22 06:00 Corrected Calcium 9.4 mg/dL (8.5-10.1) 01/29/22 06:00 Magnesium 1.9 mg/dL (1.7-2.9) 01/29/22 06:00 Total Bilirubin 0.40 mg/dL (0.2-1.0) 01/29/22 06:00 AST 53 Units/L (15-37) H 01/29/22 06:00 ALT 57 Units/L (12-78) 01/29/22 06:00 Alkaline Phosphatase 59 Units/L (46-116) 01/29/22 06:00 Creatine Kinase 172 Units/L (39-308) 01/25/22 05:40 CK-MB (CK-2) < 1.0 ng/mL (0-4.0) 01/25/22 05:40 CK/CKMB % Calc 0.6 % (<4) 01/25/22 05:40 Troponin I High Sens 31.1 ng/L (4.0-60.0) 01/25/22 05:40 C-Reactive Protein 87.20 mg/L (0-3.0) H 01/28/22 05:04 Total Protein 6.2 g/dL (6.4-8.2) L 01/29/22 06:00 Albumin 2.6 g/dL (3.4-5.0) L 01/29/22 06:00 Globulin 3.6 g/dL (2.5-4.5) 01/29/22 06:00 Albumin/Globulin Ratio 0.7 Ratio (1.1-2.1) L 01/29/22 06:00 Specimen Type Catherized urine 01/24/22 21:58 Urine Color Yellow (YELLOW) 01/24/22 21:58 Urine Appearance Cloudy (CLEAR) 01/24/22 21:58 Urine pH 5.0 (5.0 - 8.0) 01/24/22 21:58 Ur Specific [place] 1.020 (1.000-1.030) 01/24/22 21:58 Urine Protein 2+ (NEGATIVE) 01/24/22 21:58 Urine Glucose (UA) 2+ (NEGATIVE) 01/24/22 21:58 Urine Ketones 1+ (NEGATIVE) 01/24/22 21:58 Urine Blood 3+ (NEGATIVE) 01/24/22 21:58 Urine Nitrite Positive (NEGATIVE) 01/24/22 21:58 Urine Bilirubin Negative (NEGATIVE) 01/24/22 21:58 Urine Urobilinogen Normal (NORMAL) 01/24/22 21:58 Ur Leukocyte Esterase 3+ (NEGATIVE) 01/24/22 21:58 Urine RBC Tntc /HPF (0-3) A 01/24/22 21:58 Urine WBC Tntc /HPF (0-5) A 01/24/22 21:58 Ur Squamous Epith Cells Rare /HPF (NEGATIVE) 01/24/22 21:58 Urine Bacteria 1+ /HPF (NEGATIVE) 01/24/22 21:58 Urine Yeast Numerous /HPF (NEGATIVE) 01/24/22 21:58 Ur Culture Indicated? Yes/culture set up 01/24/22 21:58 Stool Description 10g brown with blood 01/29/22 06:56 Stl Occult Blood (IFOB) Positive (NEGATIVE) A 01/29/22 06:56 SARS CoV-2 RNA Rapid LANCE Negative (NEGATIVE) 01/25/22 00:11 Blood Type O NEGATIVE 01/28/22 09:40 Antibody Screen Negative 01/28/22 09:40 Crossmatch See Detail 01/28/22 09:40 - Plan (1) Pneumonia Status: Acute Qualifiers: Pneumonia type: due to unspecified organism Laterality: unspecified laterality Lung location: unspecified part of lung Qualified Code(s): J18.9 - Pneumonia, unspecified organism Plan: NORMAL SALINE AT 50 ML/HR, TPN AT 40 ML/HR, ALBUMIN 25% IV DAILY, TESSALON PERLES 200MG PO TID, TUSSIONEX 5ML PO Q12H PRN, ZOSYN 3.375G IV TID, LEVAQUIN 500MG IV DAILY, PEPCID 20MG IV Q12H, PROTONIX 40MG IV BID, GI COCKTAIL 15ML PO QID, DUONEBS QID, PULMICORT NEBS BID, NORCO 7.5/325MG PO Q6H PRN, AND THE POTASSIUM AND MAGNESIUM PROTOCOLS. (2) UTI (urinary tract infection) Status: Acute Qualifiers: Urinary tract infection type: acute cystitis Hematuria presence: with hematuria Qualified Code(s): N30.01 - Acute cystitis with hematuria (3) Anemia Status: Acute Qualifiers: Anemia type: iron deficiency Iron deficiency anemia type: unspecified iron deficiency Qualified Code(s): D50.9 - Iron deficiency anemia, unspecified (4) Hypoalbuminemia due to protein-calorie malnutrition Status: Acute (5) Bleeding external hemorrhoids Status: Acute (6) HTN (hypertension) Status: Chronic Qualifiers: Hypertension type: primary hypertension Qualified Code(s): I10 - Essential (primary) hypertension (7) COPD (chronic obstructive pulmonary disease) Status: Chronic Qualifiers: COPD type: unspecified COPD Qualified Code(s): J44.9 - Chronic obstructive pulmonary disease, unspecified (8) CAD (coronary artery disease) Status: Chronic Qualifiers: Coronary Disease-Associated Artery/Lesion type: bypass graft [place] vs. transplanted heart: [place] heart Associated angina: unspecified whether angina present Qualified Code(s): I25.810 - Atherosclerosis of coronary artery bypass graft(s) without angina pectoris (9) GERD (gastroesophageal reflux disease) Status: Chronic Qualifiers: Esophagitis presence: esophagitis presence not specified Qualified Code(s): K21.9 - Gastro-esophageal reflux disease without esophagitis (10) Renal disease Status: Chronic (11) Prostate CA Status: Acute
[2022-01-29] MEDS: DIFLUCAN 200 MG IV PREMIX* 200 MG/100 ML BAG IV SCH (10:39)
[2022-01-29] MEDS: ALBUMIN HUMAN 25%- 100 ML 100 ML IV SCH (10:39)
[2022-01-29] MEDS: PEPCID 20 MG VIAL 20 MG in NS 50 ML IV 50 ML IV SCH ×2 (12:03→21:35)
[2022-01-29] MEDS: CLINIMIX 4.25%-5% 1,000 ML with MVI INJ (ADULT) 10 ML IV SCH ×2 (14:20)
[2022-01-29] MEDS: SINGULAIR TAB 10 MG PO SCH (21:36)
[2022-01-29] MEDS: ZyrTEC TAB 10 MG PO SCH (21:36)
[2022-01-29] MEDS: LOVAZA PO SCH (21:36)
[2022-01-29] MEDS: LIPITOR TAB 40 MG PO SCH (21:36)
[2022-01-29] MEDS: ZOLOFT PO SCH (21:37)
[2022-01-29] MEDS: COUMADIN TAB 5 MG (JANTOVEN) PO SCH (21:37)
[2022-01-29] MEDS: MYSOLINE PO SCH (21:39)
[2022-01-29] MEDS: SNACK - Diabetic Appropriate PO SCH (21:40)
[2022-01-29] MEDS: NS 1,000 ML IV 1,000 ML IV SCH ×2 (22:02→22:03)
[2022-01-30 05:21] LABS: BASOPHILS % (AUTO) 0.6 % (0.2-1.0); EOSINOPHILS # (AUTO) 0.2 x10^3/uL (0.0-0.2); EOSINOPHILS % (AUTO) 2.4 % (0.9-2.9); HEMATOCRIT 27.1 % (42.0-54.0); HEMOGLOBIN 8.8 g/dL (13.5-18.0); LYMPHOCYTES # (AUTO) 2.1 X10^3/uL (1.3-2.9); LYMPHOCYTES % (AUTO) 24.7 % (21.0-51.0); MEAN CORPUSCULAR HEMOGLOBIN 26.8 pg (27.0-34.0); MEAN CORPUSCULAR HGB CONC 32.4 g/dL (33.0-35.0); MEAN CORPUSCULAR VOLUME 82.7 fL (80.0-100.0); MEAN PLATELET VOLUME 6.7 fL (7.4-11.0); MONOCYTES # (AUTO) 0.7 x10^3/uL (0.3-0.8); MONOCYTES % (AUTO) 8.3 % (0.0-13.0); NEUTROPHILS # (AUTO) 5.4 x10^3/uL (2.2-4.8); RED BLOOD COUNT 3.28 X10^6/uL (4.7-6.0); WHITE BLOOD COUNT 8.4 X10^3/uL (3.6-10.0)
[2022-01-30 05:28] LABS: ALANINE AMINOTRANSFERASE 44 Units/L (12-78); ALBUMIN 2.6 g/dL (3.4-5.0); ALKALINE PHOSPHATASE 58 Units/L (46-116); ASPARTATE AMINO TRANSFERASE 39 Units/L (15-37); BLOOD UREA NITROGEN 11 mg/dL (7-18); CALCIUM 8.2 mg/dL (8.5-10.1); CARBON DIOXIDE 34.6 mmol/L (21-32); CHLORIDE 104 mmol/L (98-107); COR CA(FOR HYPOALB) 9.3 mg/dL (8.5-10.1); CREATININE 1.05 mg/dL (0.70-1.30); SODIUM 141 mmol/L (136-145); eGFR NON BLACK RACES > 60 (>60)
[2022-01-30] MEDS: TESSALON PERLES PO SCH ×3 (06:16→21:06)
[2022-01-30] MEDS: ZOSYN VIAL 3.375 GRAMS 3.375 G in NS 100 ML IV 100 ML IV SCH ×3 (06:16→21:58)
--- NOTE | 2022-01-30 06:29 | RAD ---
HISTORYSOB HX: CVA, CAD, ME, HTN, ASTHMA, COPD, PROSTATE CANCER HX: CABGSTUDYCHEST, 1 [id number] trachea is midline. Permanent pacing device. Changes of prior CABG surgery. The cardiac silhouette is unremarkable. Stable interstitial prominence with patchy left basilar opacity. The bony thorax is unremarkable.IMPRESSIONStable portable chest.Electronically signed by: Chirag Mittal (Jan 30, 2022 06:29:35)
[2022-01-30] MEDS ORDERED: LASIX IVP ONE (08:53)
[2022-01-30] MEDS: ALBUMIN HUMAN 25%- 100 ML 100 ML IV SCH (09:04)
[2022-01-30] MEDS: DIFLUCAN 200 MG IV PREMIX* 200 MG/100 ML BAG IV SCH (09:05)
[2022-01-30] MEDS: VITAMIN D3 125 mcg (5,000 UNITS) PO SCH (09:05)
[2022-01-30] MEDS: VITAMIN B-12 PO SCH (09:06)
[2022-01-30] MEDS: SYNTHROID 50 mcg TAB PO SCH (09:07)
[2022-01-30] MEDS: K-DUR TAB 20 MEQ PO SCH (09:07)
[2022-01-30] MEDS: COZAAR PO SCH (09:07)
[2022-01-30] MEDS: PROSCAR PO SCH (09:08)
[2022-01-30] MEDS: PROTONIX INJ 40 MG VIAL IVP SCH ×2 (09:08→21:04)
[2022-01-30] MEDS: LEVAQUIN PREMIX IV 500 MG 500 MG/100 ML BAG IV SCH (09:08)
[2022-01-30] MEDS: PEPCID 20 MG VIAL 20 MG in NS 50 ML IV 50 ML IV SCH ×2 (09:09→21:03)
[2022-01-30] MEDS: MEGACE PO SCH ×2 (09:09→21:12)
[2022-01-30] MEDS: LEVSIN/MAALOX/LIDOC VISC PO SCH ×4 (09:09→21:20)
[2022-01-30] MEDS: FERROUS GLUCONATE PO SCH (09:10)
[2022-01-30] MEDS: BUMEX TAB 1 MG PO SCH ×2 (09:10→21:12)
[2022-01-30] MEDS: ASTELIN NASAL SPRAY ENOSTRIL SCH ×2 (09:11→21:21)
[2022-01-30] MEDS: PULMICORT NEB TX 0.5 MG NEB SCH ×2 (09:25→21:12)
[2022-01-30] MEDS: DUONEB 0.5 MG/3 MG (3 mL) NEB SCH ×4 (09:25→21:12)
[2022-01-30] MEDS: PATIENT'S HOME MEDICATION (Alfuzosin 10 mg Tablet Extended Release 24 Hr) PO SCH (09:39)
[2022-01-30] MEDS: DAPAGLIFLOZIN 10 MG PO SCH (09:40)
[2022-01-30] MEDS: ROBITUSSIN DM PO SCH ×4 (10:14→21:21)
[2022-01-30] MEDS: TUSSIONEX PENNKINETIC SUSP PO SCH ×2 (10:16→21:21)
[2022-01-30] MEDS: K-DUR TAB 20 MEQ PO PRN (13:45)
[2022-01-30] MEDS: MAGNESIUM SULFATE 1 GRAM/100 mL PREMIX 1 G/100 ML BAG IV PRN ×2 (14:30→19:55)
[2022-01-30] MEDS: CLINIMIX 4.25%-5% 1,000 ML with MVI INJ (ADULT) 10 ML IV SCH ×2 (15:01)
[2022-01-30] MEDS: NS 1,000 ML IV 1,000 ML IV SCH (15:14)
[2022-01-30] MEDS: SNACK - Diabetic Appropriate PO SCH (20:04)
[2022-01-30] MEDS: MYSOLINE PO SCH (21:07)
[2022-01-30] MEDS: COUMADIN TAB 5 MG (JANTOVEN) PO SCH (21:07)
[2022-01-30] MEDS: ZyrTEC TAB 10 MG PO SCH (21:11)
[2022-01-30] MEDS: SINGULAIR TAB 10 MG PO SCH (21:11)
[2022-01-30] MEDS: LIPITOR TAB 40 MG PO SCH (21:11)
[2022-01-30] MEDS: ZOLOFT PO SCH (21:12)
[2022-01-30] MEDS: LOVAZA PO SCH (21:13)
[2022-01-30] MEDS: NORCO 7.5/325 MG TAB PO PRN (21:41)
[2022-01-31] MEDS: NS 1,000 ML IV 1,000 ML IV SCH ×4 (01:16→13:00)
[2022-01-31] MEDS: TESSALON PERLES PO SCH ×2 (05:47→13:00)
[2022-01-31] MEDS: ZOSYN VIAL 3.375 GRAMS 3.375 G in NS 100 ML IV 100 ML IV SCH ×2 (05:47→13:00)
[2022-01-31 05:49] LABS: BASOPHILS % (AUTO) 0.6 % (0.2-1.0); EOSINOPHILS # (AUTO) 0.2 x10^3/uL (0.0-0.2); EOSINOPHILS % (AUTO) 2.8 % (0.9-2.9); HEMATOCRIT 28.9 % (42.0-54.0); HEMOGLOBIN 9.4 g/dL (13.5-18.0); LYMPHOCYTES # (AUTO) 1.9 X10^3/uL (1.3-2.9); LYMPHOCYTES % (AUTO) 29.4 % (21.0-51.0); MEAN CORPUSCULAR HEMOGLOBIN 26.9 pg (27.0-34.0); MEAN CORPUSCULAR HGB CONC 32.6 g/dL (33.0-35.0); MEAN CORPUSCULAR VOLUME 82.3 fL (80.0-100.0); MEAN PLATELET VOLUME 6.3 fL (7.4-11.0); MONOCYTES # (AUTO) 0.5 x10^3/uL (0.3-0.8); MONOCYTES % (AUTO) 7.9 % (0.0-13.0); NEUTROPHILS # (AUTO) 3.8 x10^3/uL (2.2-4.8); NEUTROPHILS % (AUTO) 59.3 % (42.0-75.0); RED BLOOD COUNT 3.51 X10^6/uL (4.7-6.0); RED CELL DISTRIBUTION WIDTH 17.9 % (11.6-16.5); WHITE BLOOD COUNT 6.5 X10^3/uL (3.6-10.0)
[2022-01-31 06:04] LABS: ALANINE AMINOTRANSFERASE 40 Units/L (12-78); ALBUMIN 2.9 g/dL (3.4-5.0); ALKALINE PHOSPHATASE 56 Units/L (46-116); ASPARTATE AMINO TRANSFERASE 31 Units/L (15-37); BLOOD UREA NITROGEN 12 mg/dL (7-18); CALCIUM 8.6 mg/dL (8.5-10.1); CARBON DIOXIDE 35.4 mmol/L (21-32); CHLORIDE 103 mmol/L (98-107); COR CA(FOR HYPOALB) 9.5 mg/dL (8.5-10.1); CREATININE 0.99 mg/dL (0.70-1.30); MAGNESIUM 2.3 mg/dL (1.7-2.9); SODIUM 142 mmol/L (136-145); TOTAL PROTEIN 6.5 g/dL (6.4-8.2); eGFR NON BLACK RACES > 60 (>60)
[2022-01-31] MEDS: ALBUMIN HUMAN 25%- 100 ML 100 ML IV SCH (08:26)
[2022-01-31] MEDS: ASTELIN NASAL SPRAY ENOSTRIL SCH (08:26)
[2022-01-31] MEDS: PROTONIX INJ 40 MG VIAL IVP SCH (08:27)
[2022-01-31] MEDS: BUMEX TAB 1 MG PO SCH (08:28)
[2022-01-31] MEDS: COZAAR PO SCH (08:28)
[2022-01-31] MEDS: ROBITUSSIN DM PO SCH ×3 (08:28→17:44)
[2022-01-31] MEDS: PROSCAR PO SCH (08:28)
[2022-01-31] MEDS: K-DUR TAB 20 MEQ PO SCH (08:29)
[2022-01-31] MEDS: MEGACE PO SCH (08:29)
[2022-01-31] MEDS: SYNTHROID 50 mcg TAB PO SCH (08:29)
[2022-01-31] MEDS: VITAMIN B-12 PO SCH (08:29)
[2022-01-31] MEDS: VITAMIN D3 125 mcg (5,000 UNITS) PO SCH (08:29)
[2022-01-31] MEDS: FERROUS GLUCONATE PO SCH (08:29)
[2022-01-31] MEDS: TUSSIONEX PENNKINETIC SUSP PO SCH (08:30)
[2022-01-31] MEDS: LEVSIN/MAALOX/LIDOC VISC PO SCH ×3 (08:43→17:44)
[2022-01-31] MEDS: PEPCID 20 MG VIAL 20 MG in NS 50 ML IV 50 ML IV SCH (09:35)
[2022-01-31] MEDS: PULMICORT NEB TX 0.5 MG NEB SCH (09:42)
[2022-01-31] MEDS: DUONEB 0.5 MG/3 MG (3 mL) NEB SCH ×3 (09:42→18:00)
--- NOTE | 2022-01-31 09:47 | PCM.PROG ---
Progress Note - Progress Note for Day of Date of Exam: 01/30/22 - Subjective Subjective: WAS ADMITTED FOR TREATMENT OF PNEUMONIA, UTI, AND ANEMIA. HE HAS RECEIVED TWO UNITS OF PACKED RED BLOOD CELLS SINCE ADMISSION. TODAY, HE IS ALERT AND ORIENTED, SITTING UP IN BED ON MORNING ROUNDS. HE CONTINUES WITH COMPLAINTS OF PRODUCTIVE COUGH, SHORTNESS OF BREATH, AND GENERALIZED WEAKNESS TODAY. ON EXAMINATION, HEART IS REGULAR IN RATE AND RHYTHM. BILATERAL LUNGS NOTED WITH DIMINISHED LUNG SOUNDS THROUGHOUT. COUGH IS PRODUCTIVE OF THICK, YELLOW SPUTUM. ABDOMEN IS ROUND, SOFT, AND NOTED WITH SUPRAPUBIC TENDERNESS. NORMAL BOWEL SOUNDS NOTED IN ALL QUADRANTS. INDWELLING PATEL NOTED TO BEDSIDE DRAINAGE. TRACE LOWER EXTREMITY EDEMA NOTED. HIS VITALS THIS MORNING ARE: 98.6-75-20-99%-186/92. LABS WERE OBTAINED. ABNORMAL LAB VALUES INCLUDE THE FOLLOWING: RBC 3.28, HGB 8.8, HCT 27.1, INR 1.59, POTASSIUM 3.4, GLUCOSE 102, CALCIUM 8.2, AST 39, TOTAL PROTEIN 6.0, ALBUMIN 2.6. URINE CULTURE POSITIVE FOR YEAST, ENTEROCOCCUS, AND E.COLI. IT IS SENSITIVE TO THE ANTIBIOTICS THAT HE IS CURRENTLY ON. HE IS CURRENTLY ON NORMAL SALINE AT 50 ML/HR, TPN AT 40 ML/HR, ALBUMIN 25% IV DAILY, ZOSYN 3.375G IV TID, LEVAQUIN 500MG IV DAILY, DIFLUCAN 200MG IV DAILY, TESSALON PERLES 200MG TID, PEPCID 20MG IV Q12H, PROTONIX 40MG IV BID, GI COCKTAIL 15ML PO QID, DUONEBS QID, PULMICORT NEBS BID, NORCO 7.5/325MG PO Q6H PRN, THE POTASSIUM & MAGNESIUM PROTOCOLS, TUSSIONEX 5ML PO Q12H PRN COUGH, ROBITUSSIN DM 10ML PO QID PRN. WE WILL MAKE ROBITUSSIN AND TUSSIONEX SCHEDULED TODAY. WE WILL ADMINISTER AN ADDITION DOSE OF LASIX 40MG IV X 1 TODAY. PHYSICAL THERAPY WILL CONTINUE TO WORK WITH HIM. OTHERWISE, WE PLAN TO FOLLOW-UP WITH AM LABS AND CONTINUE TO MONITOR. TIME SPENT ON CLINICAL ASSESSMENT, REVIEWING LABS AND IMAGING, DECISION MAKING, AND DOCUMENTATION GREATER THAN 45 MINUTES. - Past Medical Family Social History Past Med/Fam/Surg Hx: No changes since H&P Allergies: Allergies No Known Drug Allergies Allergy (Verified 01/24/22 17:26) - Review of Systems ROS: No change since H&P - Vital Signs and I&O's Vital Signs: Temperature 97.8 F Pulse Rate [Right Brachial] 73 Pulse Rate 71 Respiratory Rate 20 Blood Pressure [Right Arm] 176/80 Blood Pressure 109/61 O2 Sat by Pulse Oximetry 98 Intake and Output: Intake & Output 01/28/22 01/29/22 01/30/22 01/31/22 11:59 11:59 11:59 11:59 Intake Total 2099 / 2099 2610 / 2610 1999 / 1999 3118 / 3118 Output Total 2300 / 2300 1100 / 1100 4850 / 4850 5200 / 5200 Balance -201 / -201 1510 / 1510 -2850 / -2850 -2081 / - Physical Exam Oriented: Normal Eyes: Normal Ear: Normal Nose: Normal Throat: Normal Respiratory: Generalized, Diminished Cardiovascular: Normal : Normal Auscultation: Bowel Sounds: Normal Tenderness: Suprapubic Skin: Normal Musculoskeletal: Normal Psychiatric: Normal Mood Description: Calm Affect: Normal Speech Pattern: Clear, Appropriate - Laboratory and Diagnostics Result Diagrams: 01/31/22 05:35 01/31/22 05:35 Labs: 01/24/22 19:35 Blood Blood Culture - Final 01/24/22 18:51 Blood Blood Culture - Final 01/25/22 02:00 Sputum - Expectorated Sputum Sputum Culture - Final 01/25/22 02:00 Sputum - Expectorated Sputum - Final 01/24/22 21:58 Urine,Catheterized Urine Culture - Final Enterobacter Cloacae Laboratory WBC 6.5 X10^3/uL (3.6-10.0) 01/31/22 05:35 RBC 3.51 X10^6/uL (4.7-6.0) L 01/31/22 05:35 Hgb 9.4 g/dL (13.5-18.0) L 01/31/22 05:35 Hct 28.9 % (42.0-54.0) L 01/31/22 05:35 MCV 82.3 fL (80.0-100.0) 01/31/22 05:35 MCH 26.9 pg (27.0-34.0) L 01/31/22 05:35 MCHC 32.6 g/dL (33.0-35.0) L 01/31/22 05:35 RDW 17.9 % (11.6-16.5) H 01/31/22 05:35 Plt Count 233 X10^3/uL (150.0-450.0) 01/31/22 05:35 MPV 6.3 fL (7.4-11.0) L 01/31/22 05:35 Neut % (Auto) 59.3 % (42.0-75.0) 01/31/22 05:35 Lymph % (Auto) 29.4 % (21.0-51.0) 01/31/22 05:35 [place] % (Auto) 7.9 % (0.0-13.0) 01/31/22 05:35 Eos % (Auto) 2.8 % (0.9-2.9) 01/31/22 05:35 Baso % (Auto) 0.6 % (0.2-1.0) 01/31/22 05:35 Neut # (Auto) 3.8 x10^3/uL (2.2-4.8) 01/31/22 05:35 Lymph # (Auto) 1.9 X10^3/uL (1.3-2.9) 01/31/22 05:35 [place] # (Auto) 0.5 x10^3/uL (0.3-0.8) 01/31/22 05:35 Eos # (Auto) 0.2 x10^3/uL (0.0-0.2) 01/31/22 05:35 Baso # (Auto) 0.0 X10^3/uL (0.0-0.1) 01/31/22 05:35 Absolute Nucleated RBC 0.0 /100WBC 01/31/22 05:35 ESR 52 MM/HOUR (0-15) H 01/28/22 05:04 PT 19.5 SECONDS (11.8-14.3) 01/31/22 05:35 INR Target Range - 01/31/22 05:35 INR 1.72 (0.8-1.3) H 01/31/22 05:35 APTT 50.7 SECONDS (22.9-36.5) H 01/25/22 05:40 PTT Comment - 01/25/22 05:40 Sodium 142 mmol/L (136-145) 01/31/22 05:35 Corrected Sodium TNP 01/31/22 05:35 Potassium 3.5 mmol/L (3.5-5.1) 01/31/22 05:35 Chloride 103 mmol/L (98-107) 01/31/22 05:35 Carbon Dioxide 35.4 mmol/L (21-32) H 01/31/22 05:35 BUN 12 mg/dL (7-18) 01/31/22 05:35 Creatinine 0.99 mg/dL (0.70-1.30) 01/31/22 05:35 Est GFR (MDRD) Af Amer > 60 (>60) 01/31/22 05:35 Est GFR (MDRD) Non-Af > 60 (>60) 01/31/22 05:35 Glucose 96 mg/dL (65-99) 01/31/22 05:35 Lactic Acid 1.8 mmol/L (0.4-2.0) 01/24/22 18:51 Calcium 8.6 mg/dL (8.5-10.1) 01/31/22 05:35 Corrected Calcium 9.5 mg/dL (8.5-10.1) 01/31/22 05:35 Magnesium 2.3 mg/dL (1.7-2.9) 01/31/22 05:35 Total Bilirubin 0.30 mg/dL (0.2-1.0) 01/31/22 05:35 AST 31 Units/L (15-37) 01/31/22 05:35 ALT 40 Units/L (12-78) 01/31/22 05:35 Alkaline Phosphatase 56 Units/L (46-116) 01/31/22 05:35 Creatine Kinase 172 Units/L (39-308) 01/25/22 05:40 CK-MB (CK-2) < 1.0 ng/mL (0-4.0) 01/25/22 05:40 CK/CKMB % Calc 0.6 % (<4) 01/25/22 05:40 Troponin I High Sens 31.1 ng/L (4.0-60.0) 01/25/22 05:40 C-Reactive Protein 87.20 mg/L (0-3.0) H 01/28/22 05:04 Total Protein 6.5 g/dL (6.4-8.2) 01/31/22 05:35 Albumin 2.9 g/dL (3.4-5.0) L 01/31/22 05:35 Globulin 3.6 g/dL (2.5-4.5) 01/31/22 05:35 Albumin/Globulin Ratio 0.8 Ratio (1.1-2.1) L 01/31/22 05:35 Specimen Type Catherized urine 01/24/22 21:58 Urine Color Yellow (YELLOW) 01/24/22 21:58 Urine Appearance Cloudy (CLEAR) 01/24/22 21:58 Urine pH 5.0 (5.0 - 8.0) 01/24/22 21:58 Ur Specific [place] 1.020 (1.000-1.030) 01/24/22 21:58 Urine Protein 2+ (NEGATIVE) 01/24/22 21:58 Urine Glucose (UA) 2+ (NEGATIVE) 01/24/22 21:58 Urine Ketones 1+ (NEGATIVE) 01/24/22 21:58 Urine Blood 3+ (NEGATIVE) 01/24/22 21:58 Urine Nitrite Positive (NEGATIVE) 01/24/22 21:58 Urine Bilirubin Negative (NEGATIVE) 01/24/22 21:58 Urine Urobilinogen Normal (NORMAL) 01/24/22 21:58 Ur Leukocyte Esterase 3+ (NEGATIVE) 01/24/22 21:58 Urine RBC Tntc /HPF (0-3) A 01/24/22 21:58 Urine WBC Tntc /HPF (0-5) A 01/24/22 21:58 Ur Squamous Epith Cells Rare /HPF (NEGATIVE) 01/24/22 21:58 Urine Bacteria 1+ /HPF (NEGATIVE) 01/24/22 21:58 Urine Yeast Numerous /HPF (NEGATIVE) 01/24/22 21:58 Ur Culture Indicated? Yes/culture set up 01/24/22 21:58 Stool Description 10g brown with blood 01/29/22 06:56 Stl Occult Blood (IFOB) Positive (NEGATIVE) A 01/29/22 06:56 Resp Viral Panel (PCR) See scanned report 01/25/22 19:45 SARS CoV-2 RNA Rapid LANCE Negative (NEGATIVE) 01/25/22 00:11 Miscellaneous Test See scanned report 01/24/22 21:58 Blood Type O NEGATIVE 01/28/22 09:40 Antibody Screen Negative 01/28/22 09:40 Crossmatch See Detail 01/28/22 09:40 - Plan (1) Pneumonia Status: Acute Qualifiers: Pneumonia type: due to unspecified organism Laterality: unspecified laterality Lung location: unspecified part of lung Qualified Code(s): J18.9 - Pneumonia, unspecified organism Plan: NORMAL SALINE AT 50 ML/HR, TPN AT 40 ML/HR, ALBUMIN 25% IV DAILY, TESSALON PERLES 200MG PO TID, TUSSIONEX 5ML PO Q12H, ROBITUSSIN DM 10ML QID, ZOSYN 3.375G IV TID, LEVAQUIN 500MG IV DAILY, PEPCID 20MG IV Q12H, PROTONIX 40MG IV BID, GI COCKTAIL 15ML PO QID, DUONEBS QID, PULMICORT NEBS BID, NORCO 7.5/325MG PO Q6H [place] N, AND THE POTASSIUM AND MAGNESIUM PROTOCOLS. (2) UTI (urinary tract infection) Status: Acute Qualifiers: Urinary tract infection type: acute cystitis Hematuria presence: with hematuria Qualified Code(s): N30.01 - Acute cystitis with hematuria (3) Anemia Status: Acute Qualifiers: Anemia type: iron deficiency Iron deficiency anemia type: unspecified iron deficiency Qualified Code(s): D50.9 - Iron deficiency anemia, unspecified (4) Hypoalbuminemia due to protein-calorie malnutrition Status: Acute (5) Bleeding external hemorrhoids Status: Acute (6) HTN (hypertension) Status: Chronic Qualifiers: Hypertension type: primary hypertension Qualified Code(s): I10 - Essential (primary) hypertension (7) COPD (chronic obstructive pulmonary disease) Status: Chronic Qualifiers: COPD type: unspecified COPD Qualified Code(s): J44.9 - Chronic obstructive pulmonary disease, unspecified (8) CAD (coronary artery disease) Status: Chronic Qualifiers: Coronary Disease-Associated Artery/Lesion type: bypass graft [place] vs. transplanted heart: [place] heart Associated angina: unspecified whether angina present Qualified Code(s): I25.810 - Atherosclerosis of coronary artery bypass graft(s) without angina pectoris (9) GERD (gastroesophageal reflux disease) Status: Chronic Qualifiers: Esophagitis presence: esophagitis presence not specified Qualified Code(s): K21.9 - Gastro-esophageal reflux disease without esophagitis (10) Renal disease Status: Chronic (11) Prostate CA Status: Acute
[2022-01-31] MEDS: DIFLUCAN 200 MG IV PREMIX* 200 MG/100 ML BAG IV SCH (10:11)
[2022-01-31] MEDS: LEVAQUIN PREMIX IV 500 MG 500 MG/100 ML BAG IV SCH (11:13)
[2022-01-31 12:06] VITALS: BP 137/70
[2022-01-31] MEDS: CLINIMIX 4.25%-5% 1,000 ML with MVI INJ (ADULT) 10 ML IV SCH ×2 (16:16)
== END 2022-01-31 18:40 | disposition home or self-care (01) | DRG 194 ==
LOC: ER 17:25 → MED/SURG 01-25 00:18
PROVIDERS: ADMIT Internal Medicine; ATTEND Internal Medicine
DX: R26.2 Difficulty in walking, not elsewhere classified; J18.9 Pneumonia, unspecified organism; I12.9 Hypertensive chronic kidney disease with stage 1 through stage 4 chronic kidney disease, or unspecified chronic kidney disease; K21.9 Gastro-esophageal reflux disease without esophagitis; C61 Malignant neoplasm of prostate; J44.9 Chronic obstructive pulmonary disease, unspecified; R63.39 Other feeding difficulties; Z46.6 Encounter for fitting and adjustment of urinary device; E66.9 Obesity, unspecified; N30.01 Acute cystitis with hematuria; B37.9 Candidiasis, unspecified; Z87.440 Personal history of urinary (tract) infections; N18.9 Chronic kidney disease, unspecified; E88.09 Other disorders of plasma-protein metabolism, not elsewhere classified; K64.4 Residual hemorrhoidal skin tags; I87.2 Venous insufficiency (chronic) (peripheral); B95.2 Enterococcus as the cause of diseases classified elsewhere; Z95.1 Presence of aortocoronary bypass graft; D50.9 Iron deficiency anemia, unspecified; Z20.822 Contact with and (suspected) exposure to COVID-19; I25.10 Atherosclerotic heart disease of native coronary artery without angina pectoris